=== PATIENT | male | born 1965 | race Caucasian/White ===

== ENCOUNTER → 2024-07-02 08:19 | Outpatient (REF) | payer OTHER, SELFPAY | LOC: HWRCS 08:19 | PROVIDERS: ATTENDING PHYSICIAN Internal Medicine; FAMILY PHYSICIAN Nurse Practitioner | DX: I10 Essential (primary) hypertension (principal) | CPT/HCPCS: 93306 ==

== ENCOUNTER 2024-07-09 10:16 | Day surgery (SDC) | payer OTHER, SELFPAY ==
[2024-07-09] VITALS (13 sets, daily range): BP systolic 117–134; BP diastolic 74–91; BMI 30.7
[2024-07-09 11:08] LABS: Glucose - Point of Care 179 mg/dl (70-99)
--- NOTE | 2024-07-09 13:49 | ITS.CL.CATH ---
[employer] - Catheterization
Cardiac Catheterization
Procedure Report:
Procedure Report:
CARDIAC CATHETERIZATION REPORT
Date of Procedure: 07/09/24
Referring: Dr. Sai Maxwell MD
Indication: abnormal echocardiogram with regional wall motion abnormalities
PROCEDURE:
1. Left heart catheterization
2. Coronary angiography
ACCESS:
6 [place] right radial artery
CATHETERS:
1. 6 [place] JL3.5
2. 6 [place] JR4
HEMODYNAMIC DATA
LV 120/15 (EDP 25) mmHg
AO 125/75 (mean 95) mmHg
CORONARY ANGIOGRAPHY
Dominance: right
LM: normal
LAD: gives rise to a moderate caliber diagonal branch. There is a focal 70% stenosis just after the D1 and a total occlusion in the distal vessel with L-L filling from the LCx. The occluded segment appears to be 10-15 mm long but non-calcified and
non-tortuous.
LCx: gives rise to a large OM1 and several LPL branches. There are mild luminal irregularities.
RCA: gives rise to a moderate caliber RDPA. There is a 80% proximal stenosis and serial moderate stenoses in the distal vessel extending into the RPDA.
Closure Device: TR band
Radiation dose (mGy): 370.69
DAP (cm2.Gy): 27.7691
Fluoroscopy time (minutes): 4.0
CONCLUSIONS:
1. Elevated LV filling pressure and no aortic stenosis
2. Two-vessel coronary artery disease in a right dominant system
RECOMMENDATIONS:
1. Expectant management after cardiac catheterization via right approach
2. Aggressive secondary management of coronary artery disease
3. Referral to CT Surgery for CABG evaluation given young age, multi-vessel disease including LAD involvement, and diabetes
Copy To: Dr. Sai Maxwell MD ([employer]); LANG Baltazar (PCP)
Signed: Mahesh Vasquez MD, PhD
== END 2024-07-09 16:00 | disposition home or self-care (01) ==
LOC: CATH 10:16
PROVIDERS: ATTENDING PHYSICIAN Student in an Organized Health Care Education/Training Program; FAMILY PHYSICIAN Nurse Practitioner; OTHER PHYSICIAN Internal Medicine
DX: I25.10 Atherosclerotic heart disease of native coronary artery without angina pectoris (principal); R93.1 Abnormal findings on diagnostic imaging of heart and coronary circulation; I10 Essential (primary) hypertension; E78.5 Hyperlipidemia, unspecified; E11.9 Type 2 diabetes mellitus without complications; Z79.82 Long term (current) use of aspirin; Z79.4 Long term (current) use of insulin; Z79.84 Long term (current) use of oral hypoglycemic drugs
CPT/HCPCS: 82962; 93458; C1894; Q9967

== ENCOUNTER → 2024-07-21 06:38 | Outpatient (REF) | payer OTHER, SELFPAY | LOC: RAD 06:38 | PROVIDERS: ATTENDING PHYSICIAN Thoracic Surgery (Cardiothoracic Vascular Surgery); FAMILY PHYSICIAN Nurse Practitioner | DX: I25.10 Atherosclerotic heart disease of native coronary artery without angina pectoris (principal); Z01.818 Encounter for other preprocedural examination | CPT/HCPCS: 71250 ==

== ENCOUNTER → 2024-07-31 09:13 | Outpatient (REF) | payer OTHER, SELFPAY | LOC: RAD 09:13 | PROVIDERS: ATTENDING PHYSICIAN Thoracic Surgery (Cardiothoracic Vascular Surgery); FAMILY PHYSICIAN Nurse Practitioner | DX: I25.10 Atherosclerotic heart disease of native coronary artery without angina pectoris (principal); Z01.818 Encounter for other preprocedural examination | CPT/HCPCS: 76815 ==

== ENCOUNTER 2024-08-12 05:04 | Inpatient (IN) | payer OTHER, SELFPAY ==
[2024-07-28 08:39] VITALS: BMI 31.6
[2024-07-28 10:52] LABS: Urine Albumin Negative (Neg - Trace); Urine Bilirubin Negative (Negative); Urine Character Clear (Clear); Urine Color Yellow; Urine Glucose 3+ (Negative); Urine Ketone Negative (Negative); Urine Leukocyte Negative (Negative); Urine Nitrite Negative (Negative); Urine Occult Blood Negative (Negative); Urine Urobilinogen Negative (Neg - 1+)
[2024-07-28 10:53] LABS: % Basophils 0.6 % (0-2); % Eosinophils 4.9 % (0-6); % Immature Granulocytes 0.3 % (0-0.5); % Lymphocytes 27.1 % (20.5-51.1); % Monocytes 9.4 % (1.7-9.3); % Neutrophils 57.7 % (42.2-75.2); Absolute Basophils 0.1 10^3/uL (0-0.2); Absolute Eosinophils 0.4 10^3/uL (0-0.7); Absolute Lymphocytes 2.5 10^3/uL (1.2-3.4); Absolute Monocytes 0.9 10^3/uL (0.1-0.6); Absolute Neutrophils 5.2 10^3/uL (1.4-6.5); Hematocrit 42.3 % (39.0-52.0); Hemoglobin 14.4 g/dL (13.0-18.0); Mean Corpuscular Volume 85.3 fL (80.0-94.0); Mean Platelet Volume 10.5 fL (7.4-10.4); Nucleated Red Blood Cells % 0 % (-); Platelet Count 242 10^3/uL (130-400); Red Blood Cell Count 4.96 10^6/uL (4.70-6.10); Red Cell Dist. Width 13.3 % (11.5-14.5)
[2024-07-28 11:00] LABS: INR 1.04; PT 13.4 Sec (11.4-14.6)
[2024-07-28 11:01] LABS: APTT 28.1 Sec (23.4-35.0)
[2024-07-28 11:24] LABS: Glycohemoglobin (HgbA1c) 7.8 % (4.0-5.6)
[2024-07-28 11:38] LABS: ALT (SGPT) 27 U/L (0-50); AST (SGOT) 21 U/L (17-59); Albumin 4.8 g/dl (3.5-5.0); Alkaline Phosphatase 52 U/L (38-126); Blood Urea Nitrogen 27 mg/dl (9-20); Carbon Dioxide 25 mmol/L (22-30); Chloride 101 mmol/L (98-107); Estimated Creatinine Clearance 76 ml/min; Glucose 190 mg/dl (70-99); Potassium 4.5 mmol/L (3.5-5.1); Sodium 142 mmol/L (135-145); Total Bilirubin 0.5 mg/dl (0.2-1.3); Total Protein 7.5 g/dl (6.3-8.2); eGFR > 60.00
--- NOTE | 2024-07-28 12:02 | CM ---
spoke to pt in PAT, we discussed preop CABG teaching including sternal and driving restrictions. he is prev indep, lives with his in a 2 story home with 4 steps to enter. he denies any dme's. he has the cardiac educ book, soap and instructions.
he is agreeable to a f/u visit from the ct transitional care nurse after dc. plan is for cabg 08/10, cm role explained and all questions answered.
[2024-08-12] VITALS (12 sets, daily range): BP systolic 85–122; BP diastolic 60–74; BMI 33.1
[2024-08-12] MEDS: LOPRESSOR 25 MG PO (05:33)
[2024-08-12] MEDS: MAGNESIUM OXIDE 500 MG PO (05:33)
[2024-08-12] MEDS: BACTROBAN 2% OINTMENT 1 APPLIC NASAL ×2 (05:33→19:52)
[2024-08-12] MEDS: PROTONIX 40 MG PO (05:33)
--- NOTE | 2024-08-12 06:00 | PTCARENOTE ---
Addendum entered by Sandra Nayak RN 08/12/24 07:15:
pt's own blood glucose monitored removed per CT surgeon.
Original Note:
admitted pt into CVICU room 2260. pt confirmed 2 showers at home. pt clipped and prepped for CVOR. wiped w/ CHG wipes. pre-op meds give. pre-op education provided. all questions answered. on-call to [facility]OR.
--- NOTE | 2024-08-12 06:18 | W.CVOR.SURPR ---
CVOR Surgeon Immed Pre Op
-
I have examined this patient prior to performance of the scheduled procedure.
The patient's condition is unchanged from the time of the dictated/written History and
Physical and the patient is able to undergo the scheduled procedure.
[2024-08-12 07:08] LABS: ACT+ - POC 93 Seconds (82-134)
--- NOTE | 2024-08-12 07:53 | W.PN.CD ---
Today's Communication / Plan
-
CABG today.
Impression / Plan
-
Impression/Plan: 59 y/o male with IDDM, HTN, HLD and CAD admitted for elective 2V CABG.
#CAD
-Chronic.
-Undergoing CABG this morning.
-Anticipate routine post operative care.
-Admission weight 84.7 kg.
-Wean pressors/inotropes for MAP > 65 mmHg, CI > 1.8 L/min/m2.
-Wean vent to extubate.
-Pain/chest tube management per CT surgery.
#HTN
-Chronic, stable.
-BP meds on hold during immediate post operative recovery.
-Restart home medications as BP will tolerate.
#HLD
-Chronic, stable.
-Continue high dose, high potency statin and ezetimibe.
-Goal LDL < 55.
#IDDM
-Chronic, stable.
-Insulin gtt per protocol.
-The patient is appropriately on GLP-1 analog as an outpatient.
Subjective/Interval History:
Admitted for elective CABG.
Patient examined during surgery - they are unable to provide me with any history.
DATA:
TTE, 07/02/2024:
CONCLUSIONS
Mildly reduced systolic function. Left ventricular ejection fraction is 49% by
3D Volumetric assessment.
Apical segments appear hypokinetic.
Stage I diastolic dysfunction suggestive of abnormal relaxation.
No significant valvular disease.
No prior study available for comparison.
Cardiac Catheterization, 07/09/2024:
CORONARY ANGIOGRAPHY
Dominance: right
LM: normal
LAD: gives rise to a moderate caliber diagonal branch. There is a focal 70% stenosis just after the D1 and a total occlusion in the distal vessel with L-L filling from the LCx. The occluded segment appears to be 10-15 mm long but non-calcified and
non-tortuous.
LCx: gives rise to a large OM1 and several LPL branches. There are mild luminal irregularities.
RCA: gives rise to a moderate caliber RDPA. There is a 80% proximal stenosis and serial moderate stenoses in the distal vessel extending into the RPDA.
Physical Exam
Vital Signs/Labs
Vital Signs
Temp Pulse Resp BP Pulse Ox
36.4 C 79 16 170/96 98
08/12/24 05:19 08/12/24 05:33 08/12/24 05:19 08/12/24 05:33 08/12/24 05:19
08/10/24 08/11/24 08/12/24
11:59 11:59 11:59
Actual Weight 84.7 kg
07/28/24 08:51
07/28/24 08:51
PT 13.4 Sec (11.4-14.6) 07/28/24 08:51
INR 1.04 07/28/24 08:51
APTT 28.1 Sec (23.4-35.0) 07/28/24 08:51
Physical Exam
Constitutional: No acute distress and Comfortable
Neuro/Psych: Other (Intubated, sedated.)
Data Reviewed
-
Date of Service: August 12, 2024
Medical Decision Making: Reviewed Test Results, Test Interpretation and Review of Case with other Provider
EKG: Tracing Personally Visualized and interpreted and Report Reviewed by me
Echo: Report Reviewed by me
X-Ray/CT/US/MRI/NUC/PET: Image Personally Visualized and interpreted and Report Reviewed by me
Medical Tests (PFT, Pathology etc): Report Reviewed by me
Labs: Labs Reviewed by me
Old Records: Reviewed
[2024-08-12 07:56] LABS: Urine Albumin Negative (Neg - Trace); Urine Bilirubin Negative (Negative); Urine Character Clear (Clear); Urine Color Yellow; Urine Glucose 3+ (Negative); Urine Ketone Negative (Negative); Urine Leukocyte Negative (Negative); Urine Nitrite Negative (Negative); Urine Occult Blood 4+ (Negative); Urine Specific Gravity 1.015 (<1.030); Urine Urobilinogen Negative (Neg - 1+)
--- NOTE | 2024-08-12 08:28 | PN.DE.MGMTRT ---
Insulin Management
- -
08/12/2024 Diabetes Management Consult
Patient admitted this AM for CABG. PMH HCL, HTN, asthma, obesity, eczema,diabetes, CAD, GERD, neuropathy, early retinopathy. Prior to admission was taking Farxiga 10 mg daily, metformin 500 mg BID, Rybelsus 3 mg daily, Lantus 20 units @ HS. A1C
on 07/28 was 7.8%, cr 1, eGFR > 60.
Patient for OR this AM, information obtained from chart. Will see patient tomorrow, POD 1.
Diabetes History
- -
Type of Diabetes: 2
Pre-Admission Diabetes Regimen
Lab Results
Hemoglobin A1c 7.8 % (4.0-5.6) H 07/28/24 08:51
Insulin Pump Settings
IP Diabetes Regimen
Patient Education
--- NOTE | 2024-08-12 08:28 | CM ---
Reviewed chart. Mr. Costa is in the operating room today. Prior to admission he resides with his spouse in a two story home with four steps to enter. Prior to admission he was independent with ambulation and adls. Medical work-up in progress.
The discharge plan is to return home with his spouse and a home visit by the Transitional Care Nurse when medically stable.
[2024-08-12 08:54] LABS: Urine Amorphous Seen
[2024-08-12 08:55] LABS: Urine Red Blood Cell 30-40 /HPF (0-2); Urine White Cell 0-2 /HPF (0-5)
[2024-08-12 09:49] LABS: B.E. - POC -5.1 mmol/L; Glucose - POC 172 mg/dl (70-99); HCO3 - POC 22 mmol/L (21-29); Hematocrit - POC 37 % PCV (42-52); Hemodilution- POC Yes; Hemoglobin Calculated - POC 12.6; Ionized Calcium - POC 1.15 mmol/L (1.12-1.27); O2 Saturation %Calculated-POC 99.9 % (92-96); PCO2 - POC 49 mmHg (35-45); PO2 - POC 407 mmHg (80-100); POC Comment PRE; Potassium - POC 3.9 mmol/L (3.6-5.0); Sodium - POC 142 mmol/L (135-145); pH - POC 7.26 (7.35-7.45)
[2024-08-12 10:22] LABS: B.E. - POC -0.5 mmol/L; Glucose - POC 196 mg/dl (70-99); HCO3 - POC 27 mmol/L (21-29); Hematocrit - POC 29 % PCV (42-52); Hemodilution- POC Yes; Hemoglobin Calculated - POC 9.9; Ionized Calcium - POC 1.01 mmol/L (1.12-1.27); O2 Saturation %Calculated-POC 99.7 % (92-96); PCO2 - POC 62 mmHg (35-45); PO2 - POC 232 mmHg (80-100); POC Comment CPB; Potassium - POC 5.3 mmol/L (3.6-5.0); Sodium - POC 139 mmol/L (135-145); pH - POC 7.26 (7.35-7.45)
[2024-08-12 10:40] LABS: ACT+ - POC 921 Seconds (82-134)
[2024-08-12 10:44] LABS: B.E. - POC -1.3 mmol/L; Glucose - POC 206 mg/dl (70-99); HCO3 - POC 26 mmol/L (21-29); Hematocrit - POC 32 % PCV (42-52); Hemodilution- POC Yes; Hemoglobin Calculated - POC 10.8; Ionized Calcium - POC 1.07 mmol/L (1.12-1.27); O2 Saturation %Calculated-POC 97.7 % (92-96); PCO2 - POC 52 mmHg (35-45); PO2 - POC 112 mmHg (80-100); POC Comment CPB; Potassium - POC 4.7 mmol/L (3.6-5.0); Sodium - POC 141 mmol/L (135-145)
[2024-08-12 11:02] LABS: ACT+ - POC 915 Seconds (82-134)
[2024-08-12 11:29] LABS: Glucose - POC 173 mg/dl (70-99); HCO3 - POC 26 mmol/L (21-29); Hematocrit - POC 31 % PCV (42-52); Hemodilution- POC Yes; Hemoglobin Calculated - POC 10.5; O2 Saturation %Calculated-POC 99.9 % (92-96); PCO2 - POC 51 mmHg (35-45); PO2 - POC 359 mmHg (80-100); POC Comment WARM; Potassium - POC 4.5 mmol/L (3.6-5.0); Sodium - POC 142 mmol/L (135-145); pH - POC 7.31 (7.35-7.45)
[2024-08-12 11:32] LABS: ACT+ - POC 120 Seconds (82-134)
[2024-08-12] MEDS: ZETIA PO (11:56)
[2024-08-12] MEDS: LIPITOR PO (11:56)
[2024-08-12] MEDS: NOVOLOG FLEXPEN SC ×2 (11:56→16:42)
[2024-08-12] MEDS: NEURONTIN PO (11:56)
--- NOTE | 2024-08-12 11:57 | W.IMMPOSTOP ---
Addendum entered and electronically signed by Reyes Rincon MD 08/12/24 13:38:
[id number]
Original Note:
Surgical Immed Post Op Note
-
CARDIAC SURGERY OPERATIVE NOTE:
Preoperative Dx:
2V CAD including LAD occlusion
Postoperative Dx:
Same
Procedures:
1) Median sternotomy
2) Takedown of SUE (narrow pedicle/partial skeletonization)
3) Endoscopic harvest/prep of RLE GSV
4) CABG x 2 (SUE to LAD, GSV to PDA)
Surgeon:
Reyes Rincon M.D.
Assistants:
Nasir ViverosAIsaac-CIsaac; special education teaching assistant throughout
Joie Zamora P.A.-C.; endoscopic harvest/prep of RLE GSV
Perfusion:
Joie Mccain C.C.P.; XC: 78min, CPB: 95min
Anesthesia:
Santi Lehman M.D. and Sheri LandaR.N.A.
Findings:
SUE was a healthy appearing conduit w/ very brisk blood flow. It had a slightly small ELD ranging from 1.75-2.25mm
RLE GSV was a beautiful conduit w/ consistent ELD of 3.5mm
LAD was visible on the epicardial surface, scattered calcifications throughout, ELD at midpoint anastomosis 2.25mm
PDA was visible on the epicardial surface, focal mid PDA lesion w/ normal vessel before & after - arteriotomy performed across lesion over approximately 0.75cm length; ELD 2.5mm
Excellent flow in both grafts on intraoperative transit-time U/S flow probe assessment
RANDEE: normal LVEF (60-65%) w/o RWMA, no VHD
Complications:
None
Implants:
CT x 4 (B/L pleural, inferior mediastinal, superior mediastinal)
Sternal wires x 8
Sternal 'X' plate w/ 4 - 12mm and 4 - 14mm screws
Condition:
65 sinus (0.5/0.3), 95/58. CVP 19. 100%
GTTS: precedex 0.5, insulin 0.5
Stable/guarded to CVICU
--- NOTE | 2024-08-12 12:02 | CON.INTV ---
Consultation
Consultation Request
Date/Time Consultation Requested: 08/12/20241129
Date/Time Consultation Performed: 08/12/2024 - 1154
Requesting Provider: Nadiya Mon PA-C
Performing Provider: Lui Gomez MD
Reason for Consultation: s/p CABG x2
Medical History
-
Chief Complaint: Elective CABG
History of Present Illness:
59-year-old male non-smoker with a past medical history of CAD, GERD, DM type II, asthma, hypertension and hyperlipidemia who presents with elective CABG. Patient known to cardiothoracic surgery with last visit on 07/14/[address] Rincon.
Patient has known multivessel CAD. He has BRASS MOLDER HELPER of his LAD and proximal RCA disease. Surgical revascularization was discussed including its risks and benefits. Today he underwent CABG x 2 with no immediate complications. He was transferred to the
CVICU postoperatively for further care, and conference producer services now consulted for additional management/recommendations.
When I saw the patient he was resting in bed, on CPAP 5/5 at 40% FiO2, with PIP: 12 cmH2O, breathing at 19 breaths/min and VTe 543 cc. BP via left radial A-line 89/54, saturating 100% and BP via NIBP: 89/69. He is currently on insulin drip at 4
units/h. He has mediastinal chest tubes x 2+ left/right pleural chest tubes.
PMHx: Hypercholesterolemia, hypertension, history of asthma, migraine headaches, obesity, DM type II, asthma, CAD, GERD, neuropathy, retinopathy, hard of hearing, cataracts
PSHx: Non-contributory
Past Medical History
Past Medical History: Other (Above as per HPI)
Past Surgical History: Other (Above as per HPI)
Social History
Tobacco: Non-smoker
Alcohol: Occasional
Personal:
Living: With Family
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
Family History
Family History: CAD (Father), Cancer (Mother: Ovarian cancer; Sister: Ovarian cancer), Diabetes (Father + mother), Hypertension (Father + mother) and Other (Father: Hyperlipidemia; maternal grandfather: Stroke)
Allergies / Home Medications
Allergies
Allergy/AdvReac Type Severity Reaction Status Date / Time
Sulfa (Sulfonamide Allergy Unknown Unknown Verified 07/22/24 11:35
Antibiotics)
Home Medications
�Medication �Instructions �Recorded �Confirmed �Last Taken �Type
amlodipine 10 mg tablet 10 mg PO DAILY 07/09/24 08/12/24 08/10/24 10:30 History
aspirin 81 mg tablet,delayed 81 mg PO DAILY 07/09/24 08/12/24 08/11/24 12:00 History
release
atorvastatin 80 mg tablet 80 mg PO DAILY 07/09/24 08/12/24 08/10/24 08:00 History
dapagliflozin propanediol 10 mg 10 mg PO DAILY 07/09/24 08/12/24 08/09/24 08:00 History
tablet (Farxiga)
ezetimibe 10 mg tablet 10 mg PO DAILY 07/09/24 08/12/24 08/10/24 08:00 History
insulin glargine 100 unit/mL (3 20 unit SC HS 07/09/24 08/12/24 08/10/24 21:00 History
mL) subcutaneous pen (Lantus
Solostar U-100 Insulin)
losartan 100 mg tablet 100 mg PO DAILY 07/09/24 08/12/24 08/05/24 History
metformin 500 mg tablet 500 mg PO BID 07/09/24 08/12/24 08/10/24 21:00 History
nitroglycerin 0.4 mg sublingual 0.4 mg sublingual [id number] PRN 07/09/24 08/12/24 Unknown Rx
tablet chest pain #25 tabs
albuterol sulfate 90 mcg/actuation 2 puff inhalation Q6H PRN SOB 07/22/24 08/12/24 07/22/24 History
aerosol inhaler (Ventolin HFA)
semaglutide 3 mg tablet (Rybelsus) 3 mg PO DAILY 07/22/24 08/12/2408/10/24 08:00 History
semaglutide 3 mg tablet (Rybelsus) 3 mg PO DAILY 07/27/24 07/27/24 Unknown History
metoprolol succinate 25 mg PO DAILY 08/12/24 08/12/24 08/10/24 12:00 History
Review of Systems
-
Unable to Obtain full review of systems at this time due to: Patient Intubation
Vitals / Labs / Diagnostic Testing
Vital Signs
Temp Pulse Resp BP Pulse Ox
96.6 F L 67 14 170/96 98
08/12/24 13:00 08/12/24 13:10 08/12/24 13:10 08/12/24 05:33 08/12/24 13:30
Lab Data
08/12/24 12:36
Laboratory Results
08/12/24
12:36
PT 17.7 H
INR 1.45
APTT 30.5
pH 7.41
pCO2 35
pO2 102
HCO3 22.2
O2 Delivery Level Vent
Diagnostic Testing:
Physical Exam
-
HEENT: Normocephalic, Anicteric and Other (ETT in place)
Cardiovascular: S1/S2 and Peripheral Edema (negative)
Respiratory: Wheeze (negative), Rales (negative), Rhonchi (negative), Non-Labored Respirations, Other (Mechanical breath sounds heard bilaterally) and Other (Chest tubes: mediastinal chest tubes x 2+ left/right pleural chest tubes)
GI: Soft, Non Distended, Non Tender and Normal Bowel Sounds
Neurology: Tremors (negative) and Other (Sedated)
Skin: Warm and Dry
General: Respiratory Distress (negative), Comfortable, Chills (negative) and Sweats (negative)
Assessment
-
Assessment: 59-year-old male non-smoker with a past medical history of CAD, GERD, DM type II, asthma, hypertension and hyperlipidemia who presents with elective CABG. Patient known to cardiothoracic surgery with last visit on 07/14/2024 with
Sergey. Patient has known multivessel CAD. He has BRASS MOLDER HELPER of his LAD and proximal RCA disease. Surgical revascularization was discussed including its risks and benefits. On 08/12/2024, he underwent CABG x 2 with no immediate complications. He was
transferred to the CVICU postoperatively for further care, and conference producer services now consulted for additional management/recommendations.
Chronic conditions DINING CAR HOP: Hypercholesterolemia, hypertension, history of asthma, migraine headaches, obesity, DM type II, asthma, CAD, GERD, neuropathy, retinopathy, hard of hearing, cataracts
Impression:
#Two-vessel CAD including LAD occlusion s/p CABG x 2 (POD #0)
#Anemia
#DM type II on insulin (HbA1c: 7.8 on 07/28/2024) c/b hyperglycemia
#History of asthma
#GERD
#Hypercholesterolemia
#Hypertension
Plan:
Ventilator settings reviewed
FiO2 will be weaned to maintain SpO2 >90-94%
Minute ventilation will be adjusted
Arterial blood gases will be monitored
Spontaneous breathing trial will be attempted with hopeful extubation after anesthesia/sedation wear off
prn nebulized bronchodilators
Pulmonary artery catheter parameters will be followed
Pressors/antihypertensive/inotropes/diuretics will be provided as needed
Maintain MAP>65
Replete electrolytes with K>4, Mg>2
Monitor chest tube output (mediastinal chest tubes x 2+ left/right pleural chest tubes)
Monitor hemoglobin
Monitor platelet count and coags
Transfuse blood products as needed to maintain Hb>7g/dL, plt>50k (given post-operative status)
CT surgery managing chest tubes
Monitor blood sugar to maintain euglycemia with goal BG 140-180
Insulin drip per protocol
Aspiration precautions
VAP prevention protocol
DVT prophylaxis
Early nutrition
Early mobilization
Critical care statement: A total of 46 minutes of critical care time was provided for this patient today. This includes management of ventilator, spontaneous breathing trial, arterial blood gases, pressors, of unstable vital signs, evaluation of the
patient at bedside, reviewing the patient's pertinent medical records including radiographs, microbiology, laboratory evaluations, and discussion with primary team and critical care nursing.
--- NOTE | 2024-08-12 12:30 | PTCARENOTE ---
received pt from [facility]. Pt NSR per quality assurance monitor body, HR 60-70s ABP 121/67, CVP 12-15, no pacing wires, palpable pulses, no edema, pt intubated w/ ETT at the lip on Vent set to SIMV 14/500/5/5/40%, lung sounds b/l clear diminished anteriorly,
CTx4 to -20cm wall suction draining red blood, no airleaks/tidaling/crepitus, pox 98%, hypoactive bs, strauss draining clear yellow urine, sternal incision w/ aquacell c/d/i, R leg incision w/ ERICK bandage c/d/i, R groin oozy upon arrival 4x4 dressing
applied c/d/i, L Rad a-line, piv infusing insulin per protocol, RIJ cordis w/ SLIC infusing KVO, s/p EKG, labs obtained, all lines zeroed and flushed
Insulin
Cardene
Precedex
[2024-08-12 12:38] LABS: Glucose - Point of Care 96 mg/dl (70-99)
[2024-08-12 12:47] LABS: HCO3 22.2 mmol/L (21-28); Ionized Calcium 1.26 mMOL/L (1.15-1.33); O2 Saturation % 99.5 % (94-98); PCO2 35 mmHg (35-48); PO2 102 mmHg (83-108); Sodium 139 mMOL/L (136-145); pH 7.41 (7.35-7.45)
[2024-08-12 12:50] LABS: Mixed Venous O2 Saturation 67.8 %; O2 Therapy VENT
[2024-08-12 12:59] LABS: Hematocrit 31.1 % (39.0-52.0); Hemoglobin 10.8 g/dL (13.0-18.0); Platelet Count 143 10^3/uL (130-400)
[2024-08-12 13:03] LABS: APTT 30.5 Sec (23.4-35.0); INR 1.45; PT 17.7 Sec (11.4-14.6)
[2024-08-12 13:21] LABS: Blood Urea Nitrogen 19 mg/dl (9-20); Estimated Creatinine Clearance 83 ml/min; Glucose 101 mg/dl (70-99)
--- NOTE | 2024-08-12 14:05 | PTCARENOTE ---
pt spontaneously awoke, able to follow commands, drifts off to sleep
[2024-08-12 14:09] LABS: Glucose - Point of Care 160 mg/dl (70-99)
[2024-08-12] MEDS: ANCEF 10 IV ×2 (14:22)
[2024-08-12] MEDS: TYLENOL PO (14:23)
[2024-08-12] MEDS: NSS 500 IV (14:23)
[2024-08-12 14:57] LABS: Glucose - Point of Care 175 mg/dl (70-99)
--- NOTE | 2024-08-12 15:25 | PTCARENOTE ---
pt placed on CPAP by RT intermittent apnea periods however pt easily arousable
[2024-08-12 15:59] LABS: Glucose - Point of Care 216 mg/dl (70-99)
[2024-08-12 16:09] LABS: B.E. -4.4 mmol/L; Ionized Calcium 1.19 mMOL/L (1.15-1.33); PCO2 39 mmHg (35-48); PO2 151 mmHg (83-108); Potassium 4.2 mMOL/L (3.5-5.1); pH 7.34 (7.35-7.45)
[2024-08-12 16:20] LABS: Hematocrit 33.2 % (39.0-52.0); Hemoglobin 11.4 g/dL (13.0-18.0); Platelet Count 239 10^3/uL (130-400)
--- NOTE | 2024-08-12 16:20 | PTCARENOTE ---
pt extubated @ 1620 to 6L NC with no incident able to state name & and able to follow all commands IS 1000
--- NOTE | 2024-08-12 16:29 | RESPNOTE ---
pt extubated at 1620 to 6 lpm nasal cannula. 02 sats of 99% noted
--- NOTE | 2024-08-12 16:58 | PTCARENOTE ---
pt resting comfortably in bed, NSR per tele, VSS levo @ 2, 6L NC pox 100%, surgical site stable, CT output WNL, strauss draining adequate urine
[2024-08-12 17:08] LABS: Glucose - Point of Care 175 mg/dl (70-99)
[2024-08-12] MEDS: LACTATED RINGERS 250 ML IV ×2 (17:27→17:49)
[2024-08-12] MEDS: NEURONTIN 100 MG PO ×2 (17:27→21:56)
[2024-08-12] MEDS: PACERONE 200 MG PO ×2 (17:28→21:56)
[2024-08-12] MEDS: LOW STRENGTH ASPIRIN 81 MG PO (17:28)
[2024-08-12] MEDS: ANCEF 5 IV (18:11)
[2024-08-12 18:54] LABS: Glucose - Point of Care 147 mg/dl (70-99)
[2024-08-12] MEDS: SENOKOT-S 1 TABLET PO (19:50)
[2024-08-12] MEDS: ROXICODONE 5 MG PO (19:50)
--- NOTE | 2024-08-12 20:00 | PTCARENOTE ---
pt complaining of pain 5mg Alejandra given, NSR per tele, VSS levo @ 1
[2024-08-12 20:21] LABS: B.E. -1.3 mmol/L; HCO3 23.7 mmol/L (21-28); Ionized Calcium 1.18 mMOL/L (1.15-1.33); O2 Saturation % 99.3 % (94-98); PCO2 40 mmHg (35-48); PO2 132 mmHg (83-108); Potassium 4.2 mMOL/L (3.5-5.1); pH 7.38 (7.35-7.45)
[2024-08-12 20:24] LABS: Mixed Venous O2 Saturation 62.1 %
[2024-08-12 21:01] LABS: Glucose - Point of Care 107 mg/dl (70-99)
[2024-08-12] MEDS: ZOFRAN 4 MG IV (21:02)
[2024-08-12] MEDS: CALCIUM CHLORIDE 10% SYRINGE 1000 MG IV (21:04)
[2024-08-12] MEDS: TYLENOL 1000 MG PO (21:56)
--- NOTE | 2024-08-12 23:00 | PTCARENOTE ---
assumed care of patient @1900. received pt laying in bed, Aox3. no c/o pain or nausea. NSR on tele, BPs 110s/60s map 70s. CVP ~ 8 . Lungs clear, diminished satting 100 percent on 2L. 4 chest tubes present 2 meds L and R pleural to wall suction, no
air leak, tidaling or crepitus noted. Belly soft, hypoactive. Somers present draining clear yellow urine. All surgical incisions CDI. R IJ cordis with SLIC, L radial A line, R forearm PIV all central lines zeroed, flushed. Received on ,
insulin per protocol. pt resting comfortably with call esquivel within reach .
[2024-08-12 23:02] LABS: Glucose - Point of Care 102 mg/dl (70-99)
[2024-08-13] VITALS (20 sets, daily range): BP systolic 87–118; BP diastolic 59–74; PULSE 68; O2SAT 98–99; BMI 33.3
[2024-08-13 01:01] LABS: Glucose - Point of Care 101 mg/dl (70-99)
[2024-08-13] MEDS: ANCEF 5 IV ×2 (03:06→10:26)
[2024-08-13 03:23] LABS: Glucose - Point of Care 113 mg/dl (70-99)
[2024-08-13 03:34] LABS: Hematocrit 30.1 % (39.0-52.0); Hemoglobin 10.5 g/dL (13.0-18.0); Mean Corp Hgb Conc. 34.9 g/dL (33.0-37.0); Mean Corpuscular Hgb 29.7 pg (27.0-31.0); Mean Platelet Volume 10.2 fL (7.4-10.4); Platelet Count 222 10^3/uL (130-400); Red Blood Cell Count 3.54 10^6/uL (4.70-6.10); Red Cell Dist. Width 13.6 % (11.5-14.5); White Blood Cell Count 19.6 10^3/uL (4.8-10.8)
[2024-08-13 03:57] LABS: Blood Urea Nitrogen 22 mg/dl (9-20); Calcium 9.1 mg/dl (8.4-10.2); Carbon Dioxide 22 mmol/L (22-30); Chloride 111 mmol/L (98-107); Estimated Creatinine Clearance 83 ml/min; Glucose 114 mg/dl (70-99); Magnesium 2.4 mg/dl (1.6-2.3); Potassium 4.9 mmol/L (3.5-5.1); Sodium 142 mmol/L (135-145); eGFR > 60.00
--- NOTE | 2024-08-13 04:00 | PTCARENOTE ---
labs drawn and sent, EKG completed, pt resting comfortably, no change in assessment .
--- NOTE | 2024-08-13 04:16 | W.PN.CT ---
Today's Communication / Plan
-
-pod #1
-no issues overnight
-drips: on insulin, Levo is off
-CT output: 2 meds 45/135, 2 pleur 60/150 in 12/24 hrs
-deline
-d/c Somers
-continue insulin
-BP by cuff is about 10-15 points lower than a-line
-current meds (ASA, Plavix, Lipitor, Zetia, Lopressor, Amio, Protonix)
-encourage IS, OOB
Assessment / Plan
-
- 2V -CAD including LAD occlusion- s/p CABG x 2 (SUE to LAD, GSV to PDA) on 08/12/[address] Rincon, pod #1
- RANDEE: normal LVEF (60-65%) w/o RWMA, no VHD
- HTN/HLD
- Class 1 obesity, BMI 33
- DM II (HgA1c 7.8)
- Neuropathy/retinopathy
- Asthma
- Migraines
- Eczema
- GERD
- Mild hard of hearing
- Cataracts
- Nonsmoker
- Acute postop blood loss anemia
- Acute postop atelectasis
- Acute postop hypovolemia with subsequent hypervolemia
Discussed patient care with: Nursing and Care Team
Subjective
Procedure
- s/p CABG x 2 (SUE to LAD, GSV to PDA) on 08/12/[address] Rincon
-
Date of Service: August 13, 2024
Objective Data
-
PT 17.7 Sec (11.4-14.6) H 08/12/24 12:36
INR 1.45 08/12/24 12:36
APTT 30.5 Sec (23.4-35.0) 08/12/24 12:36
Vital Signs
Vital Signs
Temp Pulse Resp BP Pulse Ox
99.1 F 80 18 111/62 100
08/12/24 23:00 08/12/24 23:00 08/12/24 23:00 08/12/24 23:00 08/12/24 23:00
CT Intake/Output/Weight
08/12/24 08/12/24 08/13/24
06:59 18:59 06:59
Intake Total 780.1 / 891.5 111.4 / 891.5
Output Total 1025 / 1220 195 / 1220
Balance -244.9 / -328.5 -83.6 / -328.5
SaO2: 100
Physical Exam
-
General: Awake
Cardiovascular: Regular rate & rhythm, No Murmurs and Rub
Respiratory: Decreased Breath Sounds
Sternum: Stable
Incision: Clean and Intact
Extremities: Other (trace edema b/l)
Data Reviewed
-
Lab Results: Results Reviewed
Medications: Active Meds Reviewed
Chest X-Ray: Report Reviewed and Image Reviewed
ECG: Report Reviewed and Image Reviewed
[2024-08-13] MEDS: TYLENOL 1000 MG PO ×2 (04:55→20:02)
[2024-08-13 05:43] LABS: Glucose - Point of Care 96 mg/dl (70-99)
--- NOTE | 2024-08-13 06:25 | PTCARENOTE ---
saloni strauss removed per orders. pt stood to scale and to chair with steady gait. now resting comfortably in chair with call esquivel within reach .
[2024-08-13] MEDS: NOVOLIN R INSULIN INFUSION 100 IV (06:26)
[2024-08-13 06:46] LABS: B.E. - POC -2.1 mmol/L; Glucose - POC 122 mg/dl (70-99); HCO3 - POC 23 mmol/L (21-29); Hematocrit - POC 29 % PCV (42-52); Hemodilution- POC Yes; Ionized Calcium - POC 1.31 mmol/L (1.12-1.27); PCO2 - POC 37 mmHg (35-45); PO2 - POC 508 mmHg (80-100); POC Comment POST; Potassium - POC 3.9 mmol/L (3.6-5.0); Sodium - POC 143 mmol/L (135-145)
--- NOTE | 2024-08-13 06:51 | W.PN.CD ---
Today's Communication / Plan
-
Routine post operative care.
Wean pressors/inotropes for MAP > 65 mmHg, CI > 1.8 L/min/m2.
Not ready for diuretics - probably tomorrow.
Monitor anemia.
Encourage incentive spirometry.
Ambulate when appropriate.
Impression / Plan
-
Impression/Plan: 59 y/o male with IDDM, HTN, HLD and CAD admitted for elective 2V CABG.
#CAD
-Chronic.
-S/P 2V CABG (BARRON to LAD, SVG to RPDA) with Dr. Rincon, 08/12/2024.
-Continue routine post operative care.
-Admission weight 84.7 kg, now up to 85.3 kg.
-Wean pressors/inotropes for MAP > 65 mmHg, CI > 1.8 L/min/m2.
-Pain/chest tube management per CT surgery.
-Encourage incentive spirometry.
-Ambulate when appropriate.
#HTN
-Chronic, stable.
-BP meds on hold during immediate post operative recovery.
#HLD
-Chronic, stable.
-Continue high dose, high potency statin and ezetimibe.
-Goal LDL < 55.
#IDDM
-Chronic, stable.
-Insulin gtt per protocol.
-The patient is appropriately on GLP-1 analog as an outpatient.
Critical Care Time = 32 minutes.
Subjective/Interval History:
S/P CABG yesterday.
Pain controlled with narcotics.
Hbg dropped appropriately, hovering above 10.
Generally feels well, though he admits to some orthopnea.
DATA:
TTE, 07/02/2024:
CONCLUSIONS
Mildly reduced systolic function. Left ventricular ejection fraction is 49% by
3D Volumetric assessment.
Apical segments appear hypokinetic.
Stage I diastolic dysfunction suggestive of abnormal relaxation.
No significant valvular disease.
No prior study available for comparison.
Cardiac Catheterization, 07/09/2024:
CORONARY ANGIOGRAPHY
Dominance: right
LM: normal
LAD: gives rise to a moderate caliber diagonal branch. There is a focal 70% stenosis just after the D1 and a total occlusion in the distal vessel with L-L filling from the LCx. The occluded segment appears to be 10-15 mm long but non-calcified and
non-tortuous.
LCx: gives rise to a large OM1 and several LPL branches. There are mild luminal irregularities.
RCA: gives rise to a moderate caliber RDPA. There is a 80% proximal stenosis and serial moderate stenoses in the distal vessel extending into the RPDA.
Physical Exam
Vital Signs/Labs
Vital Signs
Temp Pulse Resp BP Pulse Ox
36.5 C 64 16 98/59 100
08/13/24 05:00 08/13/24 06:20 08/13/24 06:00 08/13/24 06:00 08/13/24 06:20
08/11/24 08/12/24 08/13/24
11:59 11:59 11:59
Actual Weight 84.7 kg 85.3 kg
08/13/24 03:16
08/13/24 03:16
PT 17.7 Sec (11.4-14.6) H 08/12/24 12:36
INR 1.45 08/12/24 12:36
APTT 30.5 Sec (23.4-35.0) 08/12/24 12:36
Magnesium 2.4 mg/dl (1.6-2.3) H 08/13/24 03:16
Physical Exam
Constitutional: No acute distress and Comfortable
EENT: Anicteric and Moist mucous membranes
Cardiovascular: Rhythm & rate is regular, Pedal edema is absent, JVD pressure is normal, S1S2 is normal and Murmur/rub/gallop absent
Respiratory: Respiratory effort normal and Other (Decreased throughout.)
GI: Soft, Distention absent, Flat, Non tender and Normal bowel sounds
Neuro/Psych: AO x 3
Data Reviewed
-
Date of Service: August 13, 2024
Medical Decision Making: Reviewed Test Results, Independent Historian Assessment and Test Interpretation
EKG: Tracing Personally Visualized and interpreted and Report Reviewed by me
Echo: Tracing Personally Visualized and interpreted and Report Reviewed by me
X-Ray/CT/US/MRI/NUC/PET: Image Personally Visualized and interpreted and Report Reviewed by me
Medical Tests (PFT, Pathology etc): Image Personally Visualized and interpreted and Report Reviewed by me
Labs: Labs Reviewed by me
Old Records: Reviewed
--- NOTE | 2024-08-13 07:31 | W.PN.ANS.POP ---
Anesthesia Post Operative
- Anesthesia Post Op Note
Vital Signs Stable-See Nursing Note: Yes
Airway Patent: Yes
Adequate Pain Control: Yes
Change in Mental Status: No
Current Postoperative Nausea & Vomiting: No
Anesthesia Complications: No
General Anesthetic Recall: No
Unplanned Admission: No
Post Op Hydration Adequate: Yes
[2024-08-13] MEDS: PLAVIX 75 MG PO (07:56)
[2024-08-13] MEDS: NEURONTIN 100 MG PO ×3 (07:56→20:02)
[2024-08-13] MEDS: LIPITOR 80 MG PO (07:56)
[2024-08-13] MEDS: SENOKOT-S 1 TABLET PO ×2 (07:56→19:33)
[2024-08-13] MEDS: ROXICODONE 5 MG PO ×3 (07:56→19:33)
[2024-08-13] MEDS: NOVOLOG FLEXPEN SC (07:56)
[2024-08-13] MEDS: PROTONIX 40 MG PO (07:56)
[2024-08-13] MEDS: LOW STRENGTH ASPIRIN 81 MG PO (07:57)
[2024-08-13] MEDS: MAGNESIUM OXIDE 500 MG PO ×2 (07:57→19:34)
[2024-08-13] MEDS: BACTROBAN 2% OINTMENT 1 APPLIC NASAL ×2 (07:57→20:30)
[2024-08-13] MEDS: ZETIA 10 MG PO (07:57)
[2024-08-13] MEDS: LIDOCAINE 4% PATCH 1 PATCH TOPICAL (07:57)
--- NOTE | 2024-08-13 08:00 | PTCARENOTE ---
Assumed care of patient from shift superintendent caustic cresylate RN. AAO x 3, Sitting up in chair. Denies pain. SR on monitor. 2 L NC . 100%. IS to 1000. Abdomen soft and non tender. Somers intact. Surgical sites c,d,i. Pulses palpable. plan for day discussed.
[2024-08-13 08:04] LABS: Glucose - Point of Care 144 mg/dl (70-99)
--- NOTE | 2024-08-13 08:08 | PN.DE.MGMTRT ---
Insulin Management
- -
08/13/2024 Diabetes Management Consult Follow up
Patient admitted 08/12 for CABG x 2. PMH HCL, HTN, asthma, obesity, eczema,diabetes, CAD, GERD, neuropathy, early retinopathy. Prior to admission was taking Farxiga 10 mg daily, metformin 500 mg BID, Rybelsus 3 mg daily, Lantus 20 units @ HS. A1C
on 07/28 was 7.8%, cr 1, eGFR > 60.
Patient is awake alert and oriented, oob in chair, able to discuss diabetes management. Patient states he has had diabetes about 3 to 4 years, saw endo in [place] once. Currently using XO1 3 for glucose monitoring.
POD 1 s/p CAB x 2 going well. Receiving glycemic protocol insulin infusion requiring 2 to 4 units per hour.
Will continue glycemic protocol today and assess for readiness to transition to home regimen tomorrow.
Diabetes History
- -
Type of Diabetes: 2 requiring insulin
Pre-Admission Diabetes Regimen
08/12/24 08/13/24
12:36 03:16
Creatinine 0.9 0.9
Lab Results
Hemoglobin A1c 7.8 % (4.0-5.6) H 07/28/24 08:51
Insulin Pump Settings
IP Diabetes Regimen
08/12/24 08/12/24 08/12/24
12:35 12:36 14:07
Glucose 101 H
POC Glucose 96 160 H
08/12/24 08/12/24 08/12/24
14:56 15:56 17:05
Glucose
POC Glucose 175 H 216 H 175 H
08/12/24 08/12/24 08/12/24
18:52 20:58 23:01
Glucose
POC Glucose 147 H 107 H 102 H
08/13/24 08/13/24 08/13/24
00:59 03:16 03:22
Glucose 114 H
POC Glucose 101 H 113 H
08/13/24 08/13/24
05:42 08:02
Glucose
POC Glucose 96 144 H
Patient Education
[2024-08-13] MEDS: PACERONE 200 MG PO ×3 (08:18→20:03)
--- NOTE | 2024-08-13 08:40 | W.PN.INTV ---
Today's Communication / Plan
Recommendations
Up OOB as tolerated
Insulin drip
Goal BG 140�180
Pain control
Encourage incentive spirometer use
Rn Unit Manager services will continue to follow along while patient remains in the CVICU.
Assessment
-
Assessment: 59-year-old male non-smoker with a past medical history of CAD, GERD, DM type II, asthma, hypertension and hyperlipidemia who presents with elective CABG. Patient known to cardiothoracic surgery with last visit on 07/14/2024 with
Sergey. Patient has known multivessel CAD. He has ORE CHARGER of his LAD and proximal RCA disease. Surgical revascularization was discussed including its risks and benefits. On 08/12/2024, he underwent CABG x 2 with no immediate complications. He was
transferred to the CVICU postoperatively for further care, and carpet finishing supervisor services now consulted for additional management/recommendations.
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
Impression:
#Two-vessel CAD including LAD occlusion s/p CABG x 2 (POD #1)
#Anemia
#DM type II on insulin (HbA1c: 7.8 on 07/28/2024) c/b hyperglycemia
#History of asthma
#GERD
#Hypercholesterolemia
#Hypertension
Plan:
Patient successfully extubated to nasal cannula on 08/12/2024, and is currently on room air breathing
Maintain SpO2 >90-94%
prn nebulized bronchodilators
Encourage incentive spirometer use
Pressors/antihypertensive/inotropes/diuretics will be provided as needed
Maintain MAP>65
Replete electrolytes with K>4, Mg>2
Monitor chest tube output (mediastinal chest tubes x 2+ left/right pleural chest tubes)
Monitor hemoglobin
Monitor platelet count and coags
Transfuse blood products as needed to maintain Hb>7g/dL, plt>50k (given post-operative status)
CT surgery managing chest tubes
Monitor blood sugar to maintain euglycemia with goal BG 140-180
Insulin drip per protocol
Aspiration precautions
DVT prophylaxis
Early nutrition
Early mobilization
Critical care statement: A total of 41 minutes of critical care time was provided for this patient today. This includes management of ventilator, spontaneous breathing trial, arterial blood gases, pressors, of unstable vital signs, evaluation of the
patient at bedside, reviewing the patient's pertinent medical records including radiographs, microbiology, laboratory evaluations, and discussion with primary team and critical care nursing.
Subjective Dataa
Subjective Data
Date of Service:
Date of Service: August 13, 2024
Chief Complaint: Rn Unit Manager Follow Up
Subjective:
Patient seen and evaluated today at bedside. Patient's , Purvi, and [id number], Rosie, both at bedside. All questions were answered. Patient's heart rate 79, BP 93/59. Mediastinal chest tubes x 2+ left/right pleural chest tubes in
place. Currently on insulin drip at 2.3 units/hr. He feels well although has some chest pain. Denies shortness of breath, AYALA, abdominal pain, nausea, fevers or chills
Review of Systems
General: Other (Negative unless mentioned above)
Objective Data
Data Reviewed
Vital Signs / I&O / Oxygen:
Vital Signs
Temp Pulse Resp BP Pulse Ox
98.4 F 75 18 92/66 100
08/13/24 08:00 08/13/24 08:05 08/13/24 08:00 08/13/24 08:00 08/13/24 08:00
Intake and Output
08/12/24 08/13/24 08/14/24
06:59 06:59 06:59
Intake Total 1037.8 / 1037.8 490.8 / 490.8
Output Total 1615 / 1615
Balance -577.2 / -577.2 470.8 / 470.8
SaO2 [CPAP] 100
SaO2 [SIMV] 98
SaO2 100
Nasal Cannula flow liters per 2
minute
Physical Exam
General: Respiratory Distress (negative), Comfortable, Pain (Postoperative site chest pain), Chills (negative) and Sweats (negative)
HEENT: Normocephalic and Anicteric
Cardiovascular: S1-S2, Rub and Peripheral Edema (negative)
Respiratory: Clear, Wheeze (negative), Crackles (negative), Rhonchi (negative) and Accessory Resp Muscle Use (negative)
GI: Soft, Non Distended, Non Tender and Normal Bowel Sounds
Neurology: AO x 3 and Tremors (negative)
Skin: Warm, Dry, Cyanosis (negative) and Jaundice (negative)
Labs/Micro/Reports
Lab Data
08/13/24 03:16
08/13/24 03:16
Laboratory Results
08/12/24 08/12/24 08/12/24
12:36 15:55 20:13
PT 17.7 H
INR 1.45
APTT 30.5
pH 7.41 7.34 L 7.38
pCO2 35 39 40
pO2 102 151 H 132 H
HCO3 22.2 21.0 23.7
O2 Delivery Level Vent
[2024-08-13] MEDS: LOPRESSOR 12.5 MG PO ×2 (08:54→19:33)
[2024-08-13 10:32] LABS: Glucose - Point of Care 116 mg/dl (70-99)
--- NOTE | 2024-08-13 12:00 | PTCARENOTE ---
Sitting up in the chair. Denies pain at present. Chest tubes with minimal out put. Denies urge to void at present. Bladder scanned for [address] PA notified. PO intake encouraged. VSS Assessment otherwise unchanged from prior.
--- NOTE | 2024-08-13 12:02 | CM ---
Reviewed chart. Met with and Mrs. Costa to review discharge plan. He states he is feeling well. He states prior to admission he resides with his spouse and youngest son in a two story home with three steps to enter. He states he has a full
flight of steps to get to bedroom/full bathroom. He states he has a powder room on the first floor. He states prior to admission he was independent with ambulation and adls. He states he does not have any DME in the home. He states he has a
prescription plan. We reviewed a home visit by the Transitional Care Nurse. He is agreeable to home visit. Spouse states she works in the [employer] and she will be in and out. Her youngest son works in [place]. His older son will be coming in to
stay with him for a week or so to assist in his care. Medical work-up in progress. The discharge plan is to return home with his spouse and son, with his older son staying for a week and a home visit by the Transitional Care Nurse when medically
stable.
[2024-08-13 12:07] LABS: Glucose - Point of Care 117 mg/dl (70-99)
[2024-08-13] MEDS: NOVOLOG FLEXPEN 4 UNITS SC ×2 (13:22→17:53)
[2024-08-13 13:26] LABS: Glucose - Point of Care 123 mg/dl (70-99)
[2024-08-13] MEDS: NSS IV (13:29)
[2024-08-13] MEDS: TYLENOL PO (13:54)
[2024-08-13 14:26] LABS: Glucose - Point of Care 145 mg/dl (70-99)
[2024-08-13 16:02] LABS: Glucose - Point of Care 182 mg/dl (70-99)
[2024-08-13 17:43] LABS: Glucose - Point of Care 157 mg/dl (70-99)
--- NOTE | 2024-08-13 18:15 | PTCARENOTE ---
Continues to sit in recliner, intermittent sternal discomfort with good reaction to pain medication. VSS. ASsessmment otherwise unchanged from prior.
[2024-08-13 19:05] LABS: Glucose - Point of Care 173 mg/dl (70-99)
[2024-08-13 19:57] LABS: Glucose - Point of Care 166 mg/dl (70-99)
[2024-08-13] MEDS: FLEXBUMIN 50 IV (20:32)
[2024-08-13] MEDS: LR 250 IV (20:34)
--- NOTE | 2024-08-13 21:25 | PTCARENOTE ---
assumed care of patient @ 1900. received pt sitting in chair, AOx3. VSS on RA. NSR on tele HR 70s-80s. Lungs clear, diminished on room air satting low 90s. will place 2L on in bed. IS ~750. CT x4 to wall suction no air leak, tidaling or crepitus
noted. Belly soft, hypoactive. no n/v. DTV, will follow bladder scans. pt voices no urge to go at this time . surgical inscisions CDI. R IJ Cordis with KVO, L forearm PIV with insulin per protocol . pt resting comfortably in chair with family
around.
--- NOTE | 2024-08-13 21:28 | PTCARENOTE ---
pt assisted back to bed, scanned for 343 mls. CTPA notified, will give 250 LR and flexbumin, recheck at midnight. pt resting comfortably .
[2024-08-14] VITALS (17 sets, daily range): BP systolic 95–147; BP diastolic 57–78; PULSE 89; O2SAT 95; BMI 33.8
--- NOTE | 2024-08-14 | PTCARENOTE ---
scanned for 450, pt stood up and then voided 450 mls festus urine. no other change in assessment, resting comfortably
[2024-08-14] MEDS: ROXICODONE 5 MG PO ×3 (00:32→20:14)
[2024-08-14] MEDS: TYLENOL 650 MG PO ×2 (01:22→20:15)
[2024-08-14 02:13] LABS: Glucose - Point of Care 88 mg/dl (70-99)
[2024-08-14 02:13] LABS: Glucose - Point of Care 132 mg/dl (70-99)
[2024-08-14 02:13] LABS: Glucose - Point of Care 136 mg/dl (70-99)
[2024-08-14 02:14] LABS: Glucose - Point of Care 120 mg/dl (70-99)
[2024-08-14 02:49] LABS: Hematocrit 26.5 % (39.0-52.0); Hemoglobin 8.8 g/dL (13.0-18.0); Mean Corp Hgb Conc. 33.2 g/dL (33.0-37.0); Mean Corpuscular Volume 90.4 fL (80.0-94.0); Mean Platelet Volume 10.2 fL (7.4-10.4); Platelet Count 159 10^3/uL (130-400); Red Blood Cell Count 2.93 10^6/uL (4.70-6.10); Red Cell Dist. Width 13.7 % (11.5-14.5); White Blood Cell Count 14.7 10^3/uL (4.8-10.8)
--- NOTE | 2024-08-14 03:00 | PTCARENOTE ---
CTPA notified of critical calcium level, will order re draw to verify
[2024-08-14 03:08] LABS: Blood Urea Nitrogen 24 mg/dl (9-20); Calcium 6.6 mg/dl (8.4-10.2); Carbon Dioxide 20 mmol/L (22-30); Chloride 113 mmol/L (98-107); Estimated Creatinine Clearance 107 ml/min; Glucose 89 mg/dl (70-99); Magnesium 1.9 mg/dl (1.6-2.3); Potassium 3.6 mmol/L (3.5-5.1); Sodium 139 mmol/L (135-145); eGFR > 60.00
[2024-08-14 04:14] LABS: Ionized Calcium 1.16 mMOL/L (1.15-1.33)
[2024-08-14 04:15] LABS: Glucose - Point of Care 103 mg/dl (70-99)
[2024-08-14] MEDS: CALCIUM CHLORIDE 10% SYRINGE 1000 MG IV (04:44)
[2024-08-14 05:09] LABS: Blood Urea Nitrogen 30 mg/dl (9-20); Calcium 8.3 mg/dl (8.4-10.2); Carbon Dioxide 28 mmol/L (22-30); Chloride 104 mmol/L (98-107); Estimated Creatinine Clearance 75 ml/min; Glucose 98 mg/dl (70-99); Potassium 4.4 mmol/L (3.5-5.1); Sodium 138 mmol/L (135-145); eGFR > 60.00
--- NOTE | 2024-08-14 05:19 | W.PN.CT ---
Today's Communication / Plan
-
-pod #2
-no significant issues overnight, no complaints
-hypotensive, low UO- got 250 LR and 25% Albumin x 1, repleated Ca
-hg 8.8 (10.5 on 08/13)
-CT output: 2 meds 45/65, 2 pleur 65/95 in 12/24 hrs
-current meds (ASA, Plavix, Lipitor, Zetia, Lopressor, Amio, Protonix)
-encourage IS, OOB
Assessment / Plan
-
- 2V -CAD including LAD occlusion- s/p CABG x 2 (SUE to LAD, GSV to PDA) on 08/12/[address] Rincon, pod #2
- RANDEE: normal LVEF (60-65%) w/o RWMA, no VHD
- HTN/HLD
- Class 1 obesity, BMI 33
- DM II (HgA1c 7.8)
- Neuropathy/retinopathy
- Asthma
- Migraines
- Eczema
- GERD
- Mild hard of hearing
- Cataracts
- Nonsmoker
- Acute postop blood loss anemia
- Acute postop atelectasis
- Acute postop hypovolemia with subsequent hypervolemia
- Suspected acute postop pericarditis/+rub
- Acute postop hypotension
Discussed patient care with: Nursing and Care Team
Subjective
Procedure
- s/p CABG x 2 (SUE to LAD, GSV to PDA) on 08/12/[address] Rincon
-
Date of Service: August 14, 2024
Objective Data
-
Lab Results
08/14/24 02:03
PT 17.7 Sec (11.4-14.6) H 08/12/24 12:36
INR 1.45 08/12/24 12:36
APTT 30.5 Sec (23.4-35.0) 08/12/24 12:36
Vital Signs
Vital Signs
Temp Pulse Resp BP Pulse Ox
98.1 F 76 14 112/65 97
08/13/24 20:00 08/14/24 01:00 08/14/24 00:00 08/14/24 01:00 08/14/24 00:00
CT Intake/Output/Weight
08/13/24 08/13/24 08/14/24
06:59 18:59 06:59
Intake Total 257.7 / 1037.8 1386.8 / 2413.8 1027 / 2413.8
Output Total 590 / 1615 50 / 570 520 / 570
Balance -332.3 / -577.2 1336.8 / 1843.8 507 / 1843.8
SaO2: 97
Physical Exam
-
General: Awake and AOx3
Cardiovascular: Regular rate & rhythm, No Murmurs and Rub
Respiratory: Decreased Breath Sounds
Sternum: Stable
Incision: Clean, Dry and Dressing Intact
Extremities: Edema +1
Data Reviewed
-
Lab Results: Results Reviewed
Medications: Active Meds Reviewed
Chest X-Ray: Report Reviewed and Image Reviewed
ECG: Report Reviewed and Image Reviewed
[2024-08-14 06:07] LABS: Glucose - Point of Care 84 mg/dl (70-99)
--- NOTE | 2024-08-14 06:49 | W.PN.CD ---
Today's Communication / Plan
-
Incentive spirometry.
Ambulate.
Chest tube/pain management per CT surgery.
Consider a dose of diuretics.
Low threshold to transfuse (would definitely give diuretics at that point).
Impression / Plan
-
Impression/Plan: 59 y/o male with IDDM, HTN, HLD and CAD admitted for elective 2V CABG.
#CAD
-Chronic.
-S/P 2V CABG (BARRON to LAD, SVG to RPDA) with Dr. Rincon, 08/12/2024.
-Continue routine post operative care.
-Admission weight 84.7 kg, now up to 86.5 kg.
-Pain/chest tube management per CT surgery.
-Encourage incentive spirometry and ambulation to mobilize fluid.
-Continue amiodarone, aspirin, metoprolol, atorvastatin.
-Consider a dose of diuretics and monitor response.
#HTN
-Chronic, stable.
-BP meds on hold during immediate post operative recovery.
#HLD
-Chronic, stable.
-Continue high dose, high potency statin and ezetimibe.
-Goal LDL < 55.
#IDDM
-Chronic, stable.
-Insulin gtt per protocol.
-The patient is appropriately on GLP-1 analog as an outpatient.
Subjective/Interval History:
Weight up 0.6 kg from yesterday, 1.8 kg from baseline.
Mild hypotension (high 80's) yesterday, improved today.
Albumin 50 g and LR 250 mL bolus given yesterday around 20:00.
Hbg dropped to 8.8.
BUN rising. Creatinine stable.
Off of pressors/inotropes.
DATA:
TTE, 07/02/2024:
CONCLUSIONS
Mildly reduced systolic function. Left ventricular ejection fraction is 49% by
3D Volumetric assessment.
Apical segments appear hypokinetic.
Stage I diastolic dysfunction suggestive of abnormal relaxation.
No significant valvular disease.
No prior study available for comparison.
Cardiac Catheterization, 07/09/2024:
CORONARY ANGIOGRAPHY
Dominance: right
LM: normal
LAD: gives rise to a moderate caliber diagonal branch. There is a focal 70% stenosis just after the D1 and a total occlusion in the distal vessel with L-L filling from the LCx. The occluded segment appears to be 10-15 mm long but non-calcified and
non-tortuous.
LCx: gives rise to a large OM1 and several LPL branches. There are mild luminal irregularities.
RCA: gives rise to a moderate caliber RDPA. There is a 80% proximal stenosis and serial moderate stenoses in the distal vessel extending into the RPDA.
Physical Exam
Vital Signs/Labs
Vital Signs
Temp Pulse Resp BP Pulse Ox
36.6 C 70 14 96/61 97
08/14/24 04:00 08/14/24 03:00 08/14/24 04:00 08/14/24 03:00 08/14/24 04:00
08/12/24 08/13/24 08/14/24
11:59 11:59 11:59
Actual Weight 84.7 kg 85.3 kg
08/14/24 02:03
08/14/24 04:04
PT 17.7 Sec (11.4-14.6) H 08/12/24 12:36
INR 1.45 08/12/24 12:36
APTT 30.5 Sec (23.4-35.0) 08/12/24 12:36
Magnesium Cancelled 08/14/24 03:08
Physical Exam
Constitutional: No acute distress and Comfortable
EENT: Anicteric and Moist mucous membranes
Cardiovascular: Rhythm & rate is regular, Pedal edema present, S1S2 is normal and Murmur/rub/gallop absent
Respiratory: Respiratory effort normal, Wheeze Absent, Rhonchi Absent and Crackles Present (Bilateral bases.)
GI: Soft, Distention absent, Flat, Non tender and Normal bowel sounds
Neuro/Psych: AO x 3
Data Reviewed
-
Date of Service: August 14, 2024
Medical Decision Making: Reviewed Test Results, Independent Historian Assessment and Test Interpretation
EKG: Tracing Personally Visualized and interpreted and Report Reviewed by me
Echo: Tracing Personally Visualized and interpreted and Report Reviewed by me
X-Ray/CT/US/MRI/NUC/PET: Image Personally Visualized and interpreted and Report Reviewed by me
Medical Tests (PFT, Pathology etc): Image Personally Visualized and interpreted and Report Reviewed by me
Labs: Labs Reviewed by me
Old Records: Reviewed
[2024-08-14] MEDS: TYLENOL PO (07:06)
--- NOTE | 2024-08-14 07:33 | PN.DE.MGMTRT ---
Insulin Management
- -
08/14/2024: Diabetes Management F/U:
Patient admitted 08/12 for CABG x 2. PMH HCL, HTN, asthma, obesity, eczema,diabetes, CAD, GERD, neuropathy, early retinopathy. Prior to admission was taking Farxiga 10 mg daily, metformin 500 mg BID, Rybelsus 3 mg daily, Lantus 20 units @ HS.
Patient states he has had diabetes about 3 to 4 years, saw endo in [place] once. Currently using Hemant 3 for glucose monitoring. A1C on 07/28 was 7.8%, cr 1, eGFR > 60.
Patient awake alert and oriented, sitting up in bed, able to discuss diabetes management.
POD# 2 s/p CAB x 2 going well. Receiving glycemic protocol insulin infusion, glucose range 84 to 120, requiring 0.3 to 3.5 units/hr.
Will transition off drip to home regimen. Give Lantus 10 units Now. Turn drip off 1 hr after administering Lantus
Resume Farxiga 10mg daily, Metformin 1000 mg BID, Lantus 15 units @ HS(was taking 20 units at home) and Rybelsus 3mg daily- to bring in from home.
Will follow and make further adjustments if needed.
Discussed with pt and Nurse.
Diabetes History
- -
Type of Diabetes: 2 requiring insulin
Pre-Admission Diabetes Regimen
08/14/24 08/14/24
02:03 04:04
Creatinine 0.7 1.0
Lab Results
Hemoglobin A1c 7.8 % (4.0-5.6) H 07/28/24 08:51
Insulin Pump Settings
IP Diabetes Regimen
08/13/24 08/13/24 08/13/24
08:02 10:29 12:05
Glucose
POC Glucose 144 H 116 H 117 H
08/13/24 08/13/24 08/13/24
13:21 14:23 15:59
Glucose
POC Glucose 123 H 145 H 182 H
08/13/24 08/13/24 08/13/24
17:42 19:02 19:55
Glucose
POC Glucose 157 H 173 H 166 H
08/13/24 08/13/24 08/14/24
20:54 22:06 00:07
Glucose
POC Glucose 136 H 132 H 88
08/14/24 08/14/24 08/14/24
02:03 02:13 04:04
Glucose 89 98
POC Glucose 120 H
08/14/24 08/14/24
04:12 06:06
Glucose
POC Glucose 103 H 84
Meal type: Breakfast
Amount consumed: 100%
Patient Education
[2024-08-14] MEDS: LIDOCAINE 4% PATCH 1 PATCH TOPICAL (07:41)
[2024-08-14] MEDS: MAGNESIUM OXIDE 500 MG PO ×2 (07:42→19:29)
[2024-08-14] MEDS: NEURONTIN 100 MG PO ×3 (07:42→22:28)
[2024-08-14] MEDS: LIPITOR 80 MG PO (07:42)
[2024-08-14] MEDS: ZETIA 10 MG PO (07:42)
[2024-08-14] MEDS: LOW STRENGTH ASPIRIN 81 MG PO (07:42)
[2024-08-14] MEDS: PACERONE 200 MG PO ×3 (07:43→22:28)
[2024-08-14] MEDS: PLAVIX 75 MG PO (07:43)
[2024-08-14] MEDS: NOVOLOG FLEXPEN 4 UNITS SC (07:43)
[2024-08-14] MEDS: PROTONIX 40 MG PO (07:43)
[2024-08-14] MEDS: SENOKOT-S 1 TABLET PO ×2 (07:43→19:29)
[2024-08-14] MEDS: LOPRESSOR 12.5 MG PO ×2 (07:43→19:29)
[2024-08-14] MEDS: BACTROBAN 2% OINTMENT 1 APPLIC NASAL ×2 (07:44→19:29)
[2024-08-14 08:05] LABS: Glucose - Point of Care 116 mg/dl (70-99)
--- NOTE | 2024-08-14 08:10 | PTCARENOTE ---
Patient received from a p mechanic resting oob in chair, AAO X 3, c/o procedural pain, medicated for such (see MAR). NSR via cm, SaO2 @ 95% on RA. RIJ Cordis w/kvo infusing. Insulin infusing peripherally, titrating per glycemic protocol. Mediastinal
chest tubes x 2, L and R pleural chest tube (Y-connected to separate pleurevac) both to -20cm suction w/no air leak noted. All procedural sites stable. Patient updated to plan of care for the day, in agreement. See work list for full assessment and
interventions performed.
--- NOTE | 2024-08-14 08:35 | W.PN.INTV ---
Today's Communication / Plan
Recommendations
Up OOB as tolerated
Insulin drip now off - keep BG 140-180
Goal BG 140�180
Pain control
Encourage incentive spirometer use
Patient is now transferred to CVICU�telemetry status. Coil Assembler/Pulmonary service will now sign off. Please reconsult if there are any additional questions/concerns, or if patient's respiratory status deteriorates.
Assessment
-
Assessment: 59-year-old male non-smoker with a past medical history of CAD, GERD, DM type II, asthma, hypertension and hyperlipidemia who presents with elective CABG. Patient known to cardiothoracic surgery with last visit on 07/14/2024 with
Sergey. Patient has known multivessel CAD. He has ACCURACY EXPERT of his LAD and proximal RCA disease. Surgical revascularization was discussed including its risks and benefits. On 08/12/2024, he underwent CABG x 2 with no immediate complications. He was
transferred to the CVICU postoperatively for further care, and php architect services now consulted for additional management/recommendations.
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
Impression:
#Two-vessel CAD including LAD occlusion s/p CABG x 2 (POD #2)
#Anemia
#DM type II on insulin (HbA1c: 7.8 on 07/28/2024) c/b hyperglycemia
#History of asthma
#GERD
#Hypercholesterolemia
#Hypertension
Plan:
Patient successfully extubated to nasal cannula on 08/12/2024, and is currently on room air breathing comfortably
Maintain SpO2 >90-94%
prn nebulized bronchodilators
Encourage incentive spirometer use
Pressors/antihypertensive/inotropes/diuretics will be provided as needed
Maintain MAP>65
Replete electrolytes with K>4, Mg>2
Chest tubes all removed now
Monitor hemoglobin
Monitor platelet count and coags
Transfuse blood products as needed to maintain Hb>7g/dL, plt>50k (given post-operative status)
Monitor blood sugar to maintain euglycemia with goal BG 140-180
Insulin drip now off
Aspiration precautions
DVT prophylaxis
Early nutrition
Early mobilization
Patient is now transferred to CVICU�telemetry status. Coil Assembler/Pulmonary service will now sign off. Thank you for allowing us to be involved in the care of this patient. Please reconsult if there are any additional questions/concerns, or if
patient's respiratory status deteriorates.
Total time spent today was 56 minutes for this encounter. Time includes reviewing laboratory test/imaging results, reviewing pertinent medical records, obtaining and reviewing medical history, performing an appropriate exam, ordering medications,
tests and procedures. Time also includes documentation of this encounter, coordinating patient care and communicating with other healthcare professionals. Total time does not include separately billed tests performed on this date of service.
Subjective Dataa
Subjective Data
Date of Service:
Date of Service: August 14, 2024
Chief Complaint: Coil Assembler Follow Up
Subjective:
Patient seen and evaluated this morning. Currently on room air breathing comfortably, saturating 97%. Now off the insulin drip. BP 95/57 and heart rate 94. He has no complaints, all chest tubes have been removed now. Denies chest pain, SOB, AYALA,
nausea, fevers or chills.
Review of Systems
General: Other (Negative unless mentioned above)
Objective Data
Data Reviewed
Vital Signs / I&O / Oxygen:
Vital Signs
Temp Pulse Resp BP Pulse Ox
98 F 88 15 119/70 95
08/14/24 07:35 08/14/24 08:01 08/14/24 07:35 08/14/24 08:01 08/14/24 07:55
Intake and Output
08/13/24 08/14/24 08/15/24
06:59 06:59 06:59
Intake Total 1037.8 / 1037.8 2453.8 / 2453.8 270 / 270
Output Total 1615 / 1615 610 / 610
Balance -577.2 / -577.2 1843.8 / 1843.8 270 / 270
SaO2 [CPAP] 100
SaO2 [SIMV] 98
SaO2 95
Nasal Cannula flow liters per 2
minute
Physical Exam
General: Respiratory Distress (negative), Comfortable, Chills (negative) and Sweats (negative)
HEENT: Normocephalic, Anicteric and Other (R-IJ cordis in place)
Cardiovascular: S1-S2 and Peripheral Edema (negative)
Respiratory: Clear, Wheeze (negative), Crackles (negative), Rhonchi (negative) and Accessory Resp Muscle Use (negative)
GI: Soft, Non Distended, Non Tender and Normal Bowel Sounds
Neurology: AO x 3 and Tremors (negative)
Skin: Warm, Dry, Cyanosis (negative) and Jaundice (negative)
Labs/Micro/Reports
Lab Data
08/14/24 02:03
08/14/24 04:04
[2024-08-14] MEDS: GLUCOPHAGE 1000 MG PO ×2 (09:35→17:23)
[2024-08-14] MEDS: LANTUS 0.1 UNITS SC (09:35)
[2024-08-14] MEDS: FARXIGA 10 MG PO (09:35)
[2024-08-14 10:00] LABS: Glucose - Point of Care 165 mg/dl (70-99)
[2024-08-14] MEDS: LASIX 20 MG IV (10:08)
[2024-08-14] MEDS: NOVOLOG FLEXPEN-MODERATE RESISTANCE SC ×2 (12:18→17:19)
--- NOTE | 2024-08-14 12:20 | CM ---
Reviewed chart.. Met with and Mrs. Costa to review discharge plans. He states he is feeling well and maybe able to go home soon. He ambulated 150 feet in the hallway today. He states he maybe able to go home soon. We reviewed a home visit
by the Transitional Care Nurse. He is agreeable to a home visit. Prior to admission he resides with his spouse and son in a two story home with three steps to enter. He has a full flight of steps to get to bedroom/full bathroom. He has a powder
room on the first floor. Prior to admission he was independent with ambulation and adls. He does not have any DME in the home. Spouse works outside the home and will be in and out to check on him. His youngest son works in [place]. His older son
from [place] will be coming in to stay with him for awhile to assist in his care if needed. Medical work-up in progress. The discharge plan is to return home with his spouse and son staying with him and a home visit by the Transitional Care Nurse when
medically stable.
[2024-08-14 12:21] LABS: Glucose - Point of Care 140 mg/dl (70-99)
--- NOTE | 2024-08-14 12:30 | PTCARENOTE ---
pt received from previous RN, oriented, OOB in chair. SR on the monitor, HR 80-90s. no epicardial wires. SBP 90s. pt on RA, 93-98% POX. lungs diminished. IS encouraged. pt abdomen s/n, +BS. diet tolerated well. voids in urinal. sternal incision
intact. chest tube dressing c/d/i. RLE incision approximated. RIJ cordis. PIV. see worklist for VS, I&O, and assessment.
[2024-08-14] MEDS: NSS 500 IV (12:37)
[2024-08-14] MEDS: NON-FORMULARY ITEM 3 MG PO (12:38)
[2024-08-14] MEDS: TYLENOL 1000 MG PO ×2 (13:55→22:28)
[2024-08-14] MEDS: ROXICODONE 2.5 MG PO (15:13)
--- NOTE | 2024-08-14 15:59 | PTCARENOTE ---
pt VSS, no changes in assessment. pt OOB in chair. Roxicodone 2.5mg PO for pain. family at bedside. voids in urinal.
[2024-08-14 17:04] LABS: Glucose - Point of Care 131 mg/dl (70-99)
[2024-08-14 19:29] LABS: Glucose - Point of Care 185 mg/dl (70-99)
--- NOTE | 2024-08-14 19:43 | PTCARENOTE ---
Pt. received at change of shift. Pt. seen and assessed in room. Pt. OOB to chair with family at the bedside. Pt appearing to be in good spirits. Pt. AOx3 tele reading NSR. VS WNL. Minimal pain 2/10 at sternum. RN verbalized plan of care to patient,
pt. verbalizes understanding. Continuing to monitor at this time.
--- NOTE | 2024-08-14 21:31 | PTCARENOTE ---
Pt. walked senior care down the rios and back to his room around 8pm. Complained of an achy lower back, rating it 4/10. RN educated the importance of ambulating post op. Pt. verbalizes understanding. Pt. back in room. Call esquivel within reach. Continuing
to monitor at this time.
[2024-08-14] MEDS: LANTUS 0.15 UNITS SC (22:27)
[2024-08-15] VITALS (8 sets, daily range): BP systolic 101–151; BP diastolic 56–84; PULSE 70; O2SAT 95–96; BMI 33.6
[2024-08-15 04:10] LABS: Hematocrit 24.6 % (39.0-52.0); Hemoglobin 8.4 g/dL (13.0-18.0); Mean Corp Hgb Conc. 34.1 g/dL (33.0-37.0); Mean Corpuscular Hgb 29.2 pg (27.0-31.0); Mean Corpuscular Volume 85.4 fL (80.0-94.0); Mean Platelet Volume 10.1 fL (7.4-10.4); Platelet Count 189 10^3/uL (130-400); Red Blood Cell Count 2.88 10^6/uL (4.70-6.10); Red Cell Dist. Width 13.4 % (11.5-14.5); White Blood Cell Count 11.7 10^3/uL (4.8-10.8)
[2024-08-15 04:36] LABS: Blood Urea Nitrogen 31 mg/dl (9-20); Calcium 8.5 mg/dl (8.4-10.2); Carbon Dioxide 28 mmol/L (22-30); Chloride 100 mmol/L (98-107); Estimated Creatinine Clearance 84 ml/min; Glucose 140 mg/dl (70-99); Magnesium 2.1 mg/dl (1.6-2.3); Potassium 4.5 mmol/L (3.5-5.1); Sodium 134 mmol/L (135-145); eGFR > 60.00
[2024-08-15] MEDS: TYLENOL 1000 MG PO ×3 (05:11→22:18)
--- NOTE | 2024-08-15 05:16 | PTCARENOTE ---
No overnight events. VS WNL. Plan to transfer pt. to IVU at change of shift. RN explained to pt. plan of care, pt. verbalizes understanding. Call esquivel within reach, continuing to monitor at this time.
--- NOTE | 2024-08-15 05:43 | W.PN.CT ---
Addendum entered and electronically signed by Reyes Rincon MD 08/15/24 09:16:
I saw and examined the patient.
The PA's note was reviewed and I agree with the note.
Comment:
POD#3 s/p CABG x 2
Doing well.
Start BB (low-dose)
Continue ASA/plavix, amio, lipitor
D/C cordis
OOB/IS/ambulate
D/C planning for hopefully tomorrow
Original Note:
Today's Communication / Plan
-
Plan:
-No significant issues overnight. Hemodynamically and neurologically intact
-Has been hypotensive postop, improving
-Tolerating gentle diuresis and low dose BB, switched Loprssor to Toprol XL (on toprol @ home)
-Monitor h/h 8.4/24.6, monitor
-Monitor hyponatremia of 134, was 138 yesterday. Lasix and minimize fluid intake
-Cont. current meds (ASA, Plavix, Lipitor, Zetia, Toprol XL, Amio, Protonix)
-D/C cordis
-Wean off O2 as tolerated
-Encourage use of IS
-OOB into chair/Ambulate
-Home in 1-2 days
Assessment / Plan
-
- 2V -CAD including LAD occlusion- s/p CABG x 2 (SUE to LAD, GSV to PDA) on 08/12/[address] Rincon, pod #3
- RANDEE: normal LVEF (60-65%) w/o RWMA, no VHD
- HTN/HLD
- Class 1 obesity, BMI 33
- DM II (HgA1c 7.8)
- Neuropathy/retinopathy
- Asthma
- Migraines
- Eczema
- GERD
- Mild hard of hearing
- Cataracts
- Nonsmoker
- Acute postop blood loss anemia
- Acute postop atelectasis
- Acute postop hypovolemia with subsequent hypervolemia
- Suspected acute postop pericarditis/+rub
- Acute postop hypotension
- Acute postop hyponatremia, 134
Discussed patient care with: Cardiology, Nursing, Respiratory Therapy, Pharmacy and Care Team
Subjective
Procedure
- s/p CABG x 2 (SUE to LAD, GSV to PDA) on 08/12/[address] Rincon
-
Date of Service: August 15, 2024
C/o mild incisional pain, otherwise feels well
Objective Data
-
Lab Results
08/15/24 03:32
08/15/24 03:32
PT 17.7 Sec (11.4-14.6) H 08/12/24 12:36
INR 1.45 08/12/24 12:36
APTT 30.5 Sec (23.4-35.0) 08/12/24 12:36
Vital Signs
Vital Signs
Temp Pulse Resp BP Pulse Ox
98.5 F 74 16 101/56 93
08/15/24 03:42 08/15/24 03:27 08/14/24 15:11 08/15/24 03:27 08/14/24 22:26
CT Intake/Output/Weight
08/14/24 08/14/24 08/15/24
06:59 18:59 06:59
Intake Total 1067 / 2453.8 315 / 315
Output Total 560 / 610 1925 / 2525 600 / 2525
Balance 507 / 1843.8 -1610 / -2210 -600 / -2210
SaO2: 93 (2L)
Physical Exam
-
General: Awake, Oriented and AOx3
Cardiovascular: Regular rate & rhythm, No Murmurs, No Rub and No Gallop
Respiratory: Decreased Breath Sounds
Sternum: Stable
Incision: Clean, Dry, Intact and Dressing Intact
Extremities: Other (+trace edema)
Data Reviewed
-
Lab Results: Results Reviewed
Medications: Active Meds Reviewed
Chest X-Ray: Report Reviewed and Image Reviewed
ECG: Report Reviewed and Image Reviewed
[2024-08-15] MEDS: CALCIUM GLUCONATE 100 IV (05:48)
[2024-08-15 07:08] LABS: Glucose - Point of Care 162 mg/dl (70-99)
[2024-08-15] MEDS: NOVOLOG FLEXPEN-MODERATE RESISTANCE 1 UNITS SC ×2 (07:50→12:04)
[2024-08-15] MEDS: FARXIGA 10 MG PO (08:04)
[2024-08-15] MEDS: BACTROBAN 2% OINTMENT 1 APPLIC NASAL ×2 (08:04→19:47)
[2024-08-15] MEDS: GLUCOPHAGE 1000 MG PO ×2 (08:05→17:46)
[2024-08-15] MEDS: LIDOCAINE 4% PATCH 1 PATCH TOPICAL (08:05)
[2024-08-15] MEDS: LIPITOR 80 MG PO (08:06)
[2024-08-15] MEDS: LASIX 20 MG IV (08:06)
[2024-08-15] MEDS: LOW STRENGTH ASPIRIN 81 MG PO (08:07)
[2024-08-15] MEDS: NEURONTIN 100 MG PO ×3 (08:07→22:18)
[2024-08-15] MEDS: MAGNESIUM OXIDE 500 MG PO ×2 (08:07→19:47)
[2024-08-15] MEDS: PACERONE 200 MG PO ×3 (08:08→22:19)
[2024-08-15] MEDS: PLAVIX 75 MG PO (08:08)
[2024-08-15] MEDS: PROTONIX 40 MG PO (08:09)
[2024-08-15] MEDS: SENOKOT-S 1 TABLET PO ×2 (08:09→19:46)
[2024-08-15] MEDS: TOPROL XL 12.5 MG PO ×2 (08:10→19:46)
[2024-08-15] MEDS: ZETIA 10 MG PO (08:11)
[2024-08-15] MEDS: NON-FORMULARY ITEM 3 MG PO (08:20)
--- NOTE | 2024-08-15 10:34 | PTCARENOTE ---
Pt ambulated in [facility], kenton foster, denies SOB.
[2024-08-15 12:04] LABS: Glucose - Point of Care 161 mg/dl (70-99)
[2024-08-15] MEDS: NSS IV (12:27)
--- NOTE | 2024-08-15 12:35 | PTCARENOTE ---
Rk D/C'd as ordered by CHAIM HERRERA, kenton Mahan, R neck dsg remains D+I.
[2024-08-15 16:56] LABS: Glucose - Point of Care 147 mg/dl (70-99)
[2024-08-15] MEDS: ROXICODONE 5 MG PO (17:45)
[2024-08-15] MEDS: NOVOLOG FLEXPEN-MODERATE RESISTANCE SC (17:48)
[2024-08-15 21:51] LABS: Glucose - Point of Care 137 mg/dl (70-99)
[2024-08-15] MEDS: LANTUS 0.15 UNITS SC (22:18)
--- NOTE | 2024-08-15 22:52 | PTCARENOTE ---
Pt received start of shift, HR SR. Pt OOB in chair with family at bedside. Pt appears in good spirits, denies any pain. Pt adhering to sternal precautions, ambulating independently. Aquacel covering sternal incision - CDI. Pt voiding in bathroom. Pt
reports 2 bowel movements earlier in the day. Updated on plan of care, pt verbalized understanding. Call esquivel within reach.
--- NOTE | 2024-08-16 01:03 | W.PN.CT ---
Addendum entered and electronically signed by Reyes Rincon MD 08/16/24 09:21:
I saw and examined the patient.
The PA's note was reviewed and I agree with the note.
Comment:
POD#4 s/p CABG x 2
- D/C home today
Original Note:
Today's Communication / Plan
-
Plan:
-No significant issues overnight. Hemodynamically and neurologically intact
-Has been hypotensive postop, improved, tolerating resumption of low dose BB
-Tolerated gentle diuresis yesterday
-F/u 2-view cxr
-H/H more concentrated with diuresis yesterday, 9.2/26.6, was 8.4/24.6 yesterday
-Hyponatremia has resolved with diuresis, 139, was 134 yesterday. Lasix today and minimize fluid intake
-Cont. current meds (ASA, Plavix, Lipitor, Zetia, Toprol XL, Amio, Protonix)
-Diabetes management following
-Encourage use of IS
-OOB into chair/Ambulate
-Home today
Assessment / Plan
-
- 2V -CAD including LAD occlusion- s/p CABG x 2 (SUE to LAD, GSV to PDA) on 08/12/[address] Rincon, pod #4
- RANDEE: normal LVEF (60-65%) w/o RWMA, no VHD
- HTN/HLD
- Class 1 obesity, BMI 33
- DM II (HgA1c 7.8)
- Neuropathy/retinopathy
- Asthma
- Migraines
- Eczema
- GERD
- Mild hard of hearing
- Cataracts
- Nonsmoker
- Acute postop blood loss anemia
- Acute postop atelectasis
- Acute postop hypovolemia with subsequent hypervolemia
- Suspected acute postop pericarditis/+rub
- Acute postop hypotension
- Acute postop hyponatremia, 134
Discussed patient care with: Cardiology, Nursing, Respiratory Therapy, Pharmacy and Care Team
Subjective
Procedure
- s/p CABG x 2 (SUE to LAD, GSV to PDA) on 08/12/[address] Rincon
-
Date of Service: August 16, 2024
Objective Data
-
PT 17.7 Sec (11.4-14.6) H 08/12/24 12:36
INR 1.45 08/12/24 12:36
APTT 30.5 Sec (23.4-35.0) 08/12/24 12:36
Vital Signs
Vital Signs
Temp Pulse Resp BP Pulse Ox
98 F 67 18 121/84 95
08/15/24 22:21 08/15/24 22:21 08/15/24 22:21 08/15/24 22:21 08/15/24 22:21
CT Intake/Output/Weight
08/15/24 08/15/24 08/16/24
06:59 18:59 06:59
Output Total 600 / 2525
Balance -600 / -2210
SaO2: 95
Physical Exam
-
General: Awake, Oriented and AOx3
Cardiovascular: Regular rate & rhythm, No Murmurs and No Rub
Respiratory: Decreased Breath Sounds (at bases, otherwise clear)
Sternum: Stable
Incision: Clean, Dry and Intact
Extremities: Other (+trace edema)
Data Reviewed
-
Lab Results: Results Reviewed
Medications: Active Meds Reviewed
Chest X-Ray: Report Reviewed and Image Reviewed
ECG: Report Reviewed and Image Reviewed
[2024-08-16 04:43] VITALS: BP 129/90
[2024-08-16 04:56] VITALS: BMI 32.7
[2024-08-16 05:40] LABS: Hematocrit 26.6 % (39.0-52.0); Hemoglobin 9.2 g/dL (13.0-18.0); Mean Corp Hgb Conc. 34.6 g/dL (33.0-37.0); Mean Corpuscular Hgb 30.4 pg (27.0-31.0); Mean Corpuscular Volume 87.8 fL (80.0-94.0); Mean Platelet Volume 10.1 fL (7.4-10.4); Platelet Count 205 10^3/uL (130-400); Red Blood Cell Count 3.03 10^6/uL (4.70-6.10); Red Cell Dist. Width 12.8 % (11.5-14.5); White Blood Cell Count 9.5 10^3/uL (4.8-10.8)
[2024-08-16 05:43] LABS: Blood Urea Nitrogen 28 mg/dl (9-20); Calcium 8.9 mg/dl (8.4-10.2); Carbon Dioxide 31 mmol/L (22-30); Chloride 99 mmol/L (98-107); Estimated Creatinine Clearance 93 ml/min; Glucose 106 mg/dl (70-99); Magnesium 2.1 mg/dl (1.6-2.3); Potassium 4.1 mmol/L (3.5-5.1); Sodium 139 mmol/L (135-145); eGFR > 60.00
[2024-08-16] MEDS: TYLENOL 1000 MG PO (06:03)
[2024-08-16 06:53] VITALS: BP 155/80
[2024-08-16 07:43] LABS: Glucose - Point of Care 123 mg/dl (70-99)
[2024-08-16] MEDS: NOVOLOG FLEXPEN-MODERATE RESISTANCE SC (07:50)
[2024-08-16] MEDS: SENOKOT-S 1 TABLET PO (07:59)
[2024-08-16] MEDS: PACERONE 200 MG PO (07:59)
[2024-08-16] MEDS: LIPITOR 80 MG PO (07:59)
[2024-08-16] MEDS: LOW STRENGTH ASPIRIN 81 MG PO (07:59)
[2024-08-16] MEDS: ZOFRAN 4 MG IV (07:59)
[2024-08-16] MEDS: MAGNESIUM OXIDE 500 MG PO (07:59)
[2024-08-16] MEDS: NEURONTIN 100 MG PO (07:59)
[2024-08-16] MEDS: FARXIGA 10 MG PO (08:00)
[2024-08-16] MEDS: TOPROL XL 12.5 MG PO (08:00)
[2024-08-16] MEDS: ZETIA 10 MG PO (08:00)
[2024-08-16] MEDS: NON-FORMULARY ITEM 3 MG PO (08:00)
[2024-08-16] MEDS: PROTONIX 40 MG PO (08:00)
[2024-08-16] MEDS: GLUCOPHAGE 1000 MG PO (08:00)
[2024-08-16] MEDS: PLAVIX 75 MG PO (08:00)
[2024-08-16] MEDS: LIDOCAINE 4% PATCH 1 PATCH TOPICAL (08:01)
[2024-08-16] MEDS: BACTROBAN 2% OINTMENT 1 APPLIC NASAL (08:02)
[2024-08-16] MEDS: LASIX 20 MG IV (08:07)
[2024-08-16] MEDS: KCL 20 MEQ PO (08:07)
--- NOTE | 2024-08-16 10:35 | PTCARENOTE ---
Pt AOx3, no complaints of pain or discomfort. independent OOB, utilizing sternal precautions. SR on tele monitor, VSS. Blood sugars monitored. Call esquivel within reach.
--- NOTE | 2024-08-16 10:39 | W.DCSUMMARY ---
Discharge Summary
Discharge Data
Date of Admission: 08/12/24
Date of Discharge: 08/16/24
-
Pending Results: No
Hospital Course
Patient was admitted electively on 08/12/2024 and underwent coronary artery bypass grafting x [address] Reyes Rincon. Please refer to his separately dictated operative report for complete details. Postoperatively the patient was transferred to
the ICU in stable condition on Precedex insulin and Cardene drips. He was extubated per protocol around 1630. He was weaned from vasoactive medications overnight.
Postoperative day #1: Vital signs remained stable. Invasive monitoring lines were removed. Chest tubes remained. The patient was weaned from oxygen. He began ambulating.
Postoperative day #2: Patient was hypotensive overnight requiring 1 g of calcium gluconate as well as albumin. Gentle diuresis was given later in the day. Chest tubes were removed.
Postoperative day #3: Patient remained stable. Cordis catheter was removed. He was given low-dose IV Lasix. Beta-blockers were started. He is ambulating independently.
Postoperative day #4: Patient remained stable for discharge. Discharge instructions reviewed in detail with the patient his questions were answered to his satisfaction. I reviewed sternal precautions with the patient and he voiced understanding of
these instructions.
This dictation was created using voice recognition software. Please excuse any phonetic or grammatical errors as a result.
Discharge Plan
-
Patient Disposition: Home (Routine Discharge)
Discharge Diagnosis/Procedures: - Two-vessel coronary artery disease with chronic total occlusion of the left anterior descending-status post coronary artery bypass grafting x 2 (left internal thoracic artery to left anterior descending, saphenous
vein graft to posterior descending artery) on 08/12/[address] Rincon
-Intraoperative transesophageal echocardiogram: normal left ventricular ejection fraction (60-65%) no regional wall motion abnormalities
- Hypertension
- Hyperlipidemia
- Class 1 obesity, body mass index 33
- Type 2 diabetes mellitus (HgA1c 7.8)
- Neuropathy/retinopathy
- Asthma
- Migraines
- Eczema
- Gastroesophageal reflux disease
- Mild hard of hearing
- Cataracts
- Nonsmoker
- Acute postoperative blood loss anemia
- Acute postoperative atelectasis
- Acute postoperative hypovolemia with subsequent hypervolemia
- Suspected acute postoperative pericarditis/+rub
- Acute postoperative hypotension
- Acute postoperative hyponatremia, 134
Condition: Fair
Diet: Low Cholesterol and Low Sodium
Activity: As tolerated
Driving Restrictions: Not until seen by your Dr
Bathing Restrictions: OK to Shower
Other Services: Cardiac Rehab
Specialty Instructions: Weigh Daily- Call MD for wt gain/loss 3 lbs overnight/5 lbs in 1 week
Activity Restrictions/Additional Instructions:
ACTIVITY:
-No strenuous activity: no heavy lifting, pushing, pulling anything over 15 pounds for one month
-continue to use stairs as tolerated
DRIVING RESTRICTIONS:
-No driving for one month or until approved by your surgeon
WOUND CARE:
-Shower daily. Use soap & water.
-No lotions, creams or powders on incision area.
DIET:
-continue a low fat/low cholesterol diet.
-IF you are diabetic, continue carb controlled diet.
CARDIAC REHAB:
-Please make appointment to start in 5-6 weeks with your local hospital program. (See Cardiac Rehabilitation Discharge Booklet).
SPECIALTY INSTRUCTIONS:
-Weigh yourself daily. Call your physician for any weight gain/loss of 3 lbs overnight or 5 lbs in one week.
-REPORT any clicking noise or uneven appearance of your sternum to your surgeon immediately.
-If you smoke, you are instructed to quit. The [place] smoking hotline phone number is [phone]
Referrals:
[facility] [Outside] - 09/23/24 1:00 pm
(Cardiac Rehab Orientation appointment is on Monday September 23, 2024 @ 1:00pm.
The Cardiac Rehab gym is located on the first floor of the [facility].)
Genevieve Mobley CRNP [Family Provider] -
Hitesh Sinclair MD [Active] -
Reyes Rincon MD [Active] -
Prescriptions:
New
acetaminophen 325 mg Tablet
650 mg PO Q4HPRN PRN (Reason: mild pain,headache,temp >101F ) Qty: 30 0RF
clopidogrel 75 mg Tablet
75 mg PO DAILY Qty: 30 2RF
metformin 1,000 mg Tablet
1,000 mg PO BID@0800,1700 Qty: 60 2RF
losartan 25 mg Tablet
25 mg PO DAILY Qty: 30 2RF
metoprolol succinate 25 mg Tablet Extended Release 24 Hr
12.5 mg PO BID 30 Days Qty: 30 0RF
oxycodone 5 mg Tablet
5 mg PO Q4HPRN PRN (Reason: moderate pain) Qty: 30 0RF
Continued
atorvastatin 80 mg Tablet
80 mg PO DAILY
aspirin 81 mg Tablet,Delayed Release (Dr/Ec)
81 mg PO DAILY
ezetimibe 10 mg Tablet
10 mg PO DAILY
dapagliflozin propanediol [Farxiga] 10 mg Tablet
10 mg PO DAILY
nitroglycerin 0.4 mg tablet, sublingual
0.4 mg sublingual [id number] PRN (Reason: chest pain) Qty: 25 5RF
albuterol sulfate [Ventolin HFA] 90 mcg/actuation Hfa Aerosol Inhaler
2 puff INHALATION Q6H PRN (Reason: SOB)
Rybelsus 3 mg Tablet
3 mg PO DAILY
Changed
insulin glargine [Lantus Solostar U-100 Insulin] 100 unit/mL (3 mL) Insulin Pen
15 unit SC HS Qty: 0 0RF
Discontinued
metformin 500 mg Tablet
500 mg PO BID
amlodipine 10 mg Tablet
10 mg PO DAILY
losartan 100 mg Tablet
100 mg PO DAILY
Rybelsus 3 mg Tablet
3 mg PO DAILY
metoprolol succinate
25 mg PO DAILY
Discharge Orders:
Discharge Patient (As Directed); Ordered 08/16/24
Ordered By: Ab Barnard
Discharge Date and Time
Print Language: BAHAMIAN
[2024-08-16 11:39] VITALS: BP 134/79
[2024-08-16] MEDS: COZAAR 25 MG PO (11:43)
[2024-08-16 11:46] LABS: Glucose - Point of Care 105 mg/dl (70-99)
[2024-08-17 10:50] LABS: ACT+ - POC > 1003 Seconds (82-134)
[2024-08-17 10:50] LABS: ACT+ - POC > 1003 Seconds (82-134)
== END 2024-08-16 13:00 | disposition home or self-care (01) | DRG 236 ==
LOC: IVU 05:04
PROVIDERS: Physician Assistant Medical; ADMITTING PHYSICIAN Thoracic Surgery (Cardiothoracic Vascular Surgery); CONSULT PHYSICIAN Internal Medicine Critical Care Medicine; FAMILY PHYSICIAN Nurse Practitioner; OTHER PHYSICIAN Internal Medicine Cardiovascular Disease
PROC: 02100A9 Bypass Coronary Artery, One Artery from Left Internal Mammary with Autologous Arterial Tissue, Open Approach (ICD-10-PCS; 2024-08-12)
PROC: 5A1221Z Performance of Cardiac Output, Continuous (ICD-10-PCS; 2024-08-12)
PROC: 06BP4ZZ Excision of Right Saphenous Vein, Percutaneous Endoscopic Approach (ICD-10-PCS; 2024-08-12)
PROC: 0210093 Bypass Coronary Artery, One Artery from Coronary Artery with Autologous Venous Tissue, Open Approach (ICD-10-PCS; 2024-08-12)
DX: I25.10 Atherosclerotic heart disease of native coronary artery without angina pectoris (principal); D62 Acute posthemorrhagic anemia; E87.1 Hypo-osmolality and hyponatremia; J95.89 Other postprocedural complications and disorders of respiratory system, not elsewhere classified; J98.11 Atelectasis; I10 Essential (primary) hypertension; E11.40 Type 2 diabetes mellitus with diabetic neuropathy, unspecified; E11.319 Type 2 diabetes mellitus with unspecified diabetic retinopathy without macular edema; Z68.33 Body mass index [BMI] 33.0-33.9, adult; J45.909 Unspecified asthma, uncomplicated; I95.81 Postprocedural hypotension; I25.82 Chronic total occlusion of coronary artery; E66.811 Obesity, class 1; E78.00 Pure hypercholesterolemia, unspecified; G43.909 Migraine, unspecified, not intractable, without status migrainosus; K21.9 Gastro-esophageal reflux disease without esophagitis; L30.9 Dermatitis, unspecified; E86.1 Hypovolemia; E87.70 Fluid overload, unspecified; Z79.4 Long term (current) use of insulin; Z79.84 Long term (current) use of oral hypoglycemic drugs; Z79.899 Other long term (current) drug therapy; Z88.2 Allergy status to sulfonamides; Z82.49 Family history of ischemic heart disease and other diseases of the circulatory system; Z83.3 Family history of diabetes mellitus; Z83.438 Family history of other disorder of lipoprotein metabolism and other lipidemia
CPT/HCPCS: 36415; 71045; 80048; 80053; 81003; 81015; 82248; 82330; 82565; 82805; 82810; 82947; 82962; 83036; 83735; 84132; 84302; 84520; 85014; 85018; 85025; 85027; 85049; 85610; 85730; 86850; 86900; 86901; 86920; 87070; 93005; 93312; 93320; 93325; 93880; 94002; 94060; C1713; P9047

== ENCOUNTER → 2024-08-25 12:00 | Outpatient (REF) | payer OTHER, SELFPAY | LOC: DHSLP 12:00 | PROVIDERS: ATTENDING PHYSICIAN Internal Medicine Critical Care Medicine; FAMILY PHYSICIAN Nurse Practitioner | DX: G47.33 Obstructive sleep apnea (adult) (pediatric) (principal) | CPT/HCPCS: 95800 ==

== ENCOUNTER 2024-10-19 08:46 | Outpatient (RCR) | payer OTHER, SELFPAY ==
[2024-09-23 14:45] LABS: Glucose - Point of Care 129 mg/dl (70-99)
[2024-09-23 15:36] LABS: Glucose - Point of Care 113 mg/dl (70-99)
[2024-09-28 08:14] LABS: Glucose - Point of Care 154 mg/dl (70-99)
[2024-09-28 09:05] LABS: Glucose - Point of Care 145 mg/dl (70-99)
[2024-09-30 08:36] LABS: Glucose - Point of Care 158 mg/dl (70-99)
[2024-09-30 09:17] LABS: Glucose - Point of Care 120 mg/dl (70-99)
[2024-10-02 08:12] LABS: Glucose - Point of Care 111 mg/dl (70-99)
[2024-10-02 09:02] LABS: Glucose - Point of Care 105 mg/dl (70-99)
[2024-10-05 08:23] LABS: Glucose - Point of Care 155 mg/dl (70-99)
[2024-10-05 09:19] LABS: Glucose - Point of Care 118 mg/dl (70-99)
[2024-10-09 08:14] LABS: Glucose - Point of Care 128 mg/dl (70-99)
[2024-10-09 09:10] LABS: Glucose - Point of Care 117 mg/dl (70-99)
== END 2024-10-19 23:59 | disposition home or self-care (01) ==
LOC: CRHB 08:46
PROVIDERS: ATTENDING PHYSICIAN Internal Medicine
DX: I25.10 Atherosclerotic heart disease of native coronary artery without angina pectoris (principal); Z95.1 Presence of aortocoronary bypass graft
CPT/HCPCS: 82962; G0422; G0423

== ENCOUNTER → 2024-11-17 15:43 | Outpatient (REF) | payer OTHER, SELFPAY | LOC: RAD 15:43 | PROVIDERS: ATTENDING PHYSICIAN Nurse Practitioner | DX: R06.00 Dyspnea, unspecified (principal) | CPT/HCPCS: 71046 ==

== ENCOUNTER 2024-11-20 08:58 | Outpatient (RCR) | payer OTHER, SELFPAY | END 2024-11-20 23:59 | disposition home or self-care (01) | LOC: CRHB 08:58 | PROVIDERS: ATTENDING PHYSICIAN Internal Medicine | DX: I25.10 Atherosclerotic heart disease of native coronary artery without angina pectoris (principal); Z95.1 Presence of aortocoronary bypass graft | CPT/HCPCS: G0422; G0423 ==

== ENCOUNTER 2024-12-18 08:44 | Outpatient (RCR) | payer OTHER, SELFPAY | END 2024-12-18 23:59 | disposition home or self-care (01) | LOC: CRHB 08:44 | PROVIDERS: ATTENDING PHYSICIAN Internal Medicine | DX: I25.10 Atherosclerotic heart disease of native coronary artery without angina pectoris (principal); Z95.1 Presence of aortocoronary bypass graft | CPT/HCPCS: G0422; G0423 ==

== ENCOUNTER → 2024-12-29 15:01 | Outpatient (REF) | payer OTHER, SELFPAY | LOC: HWRAD 15:01 | PROVIDERS: ATTENDING PHYSICIAN Nurse Practitioner | DX: R10.9 Unspecified abdominal pain (principal) | CPT/HCPCS: 76700 ==

== ENCOUNTER 2024-12-30 07:30 | Outpatient (RCR) | payer OTHER, SELFPAY | END 2024-12-30 10:31 | disposition other institution (70) | LOC: CRHB 07:30 | PROVIDERS: ATTENDING PHYSICIAN Internal Medicine | DX: I25.10 Atherosclerotic heart disease of native coronary artery without angina pectoris (principal); Z95.1 Presence of aortocoronary bypass graft | CPT/HCPCS: G0422; G0423 ==

== ENCOUNTER → 2025-02-11 10:19 | Outpatient (REF) | payer OTHER, SELFPAY | LOC: HWRAD 10:19 | PROVIDERS: ATTENDING PHYSICIAN Family Medicine | DX: M54.50 Low back pain, unspecified (principal) | CPT/HCPCS: 72070; 72100 ==

== ENCOUNTER → 2025-08-12 08:11 | Outpatient (REF) | payer OTHER, SELFPAY | LOC: RCS 08:11 | PROVIDERS: ATTENDING PHYSICIAN Internal Medicine; FAMILY PHYSICIAN Nurse Practitioner | DX: I25.810 Atherosclerosis of coronary artery bypass graft(s) without angina pectoris (principal); I50.22 Chronic systolic (congestive) heart failure | CPT/HCPCS: 93306 ==